=== PATIENT | male | born 1950 | race Caucasian/White ===

== ENCOUNTER 2016-12-02 10:34 | Emergency (ER) | payer MEDICARE ==
[~2016-12-02 10:34] MED LIST: ASCO250T3 PO; ASPI81TA2 PO; CETI10TA30 PO; FERR-26 PO; FURO-68 PO; LISI-338 PO; LISI2.5T PO; METO50TA10 PO; OXYC-323 PO; OXYC10TA PO; PANT40TA5 PO; POTA10TA17 PO; PRAV10TA2 PO; PRED20TA PO; RIVA10TA PO
[2016-12-02] MEDS: VANCOMYCIN 1.5 GM in IV NORMAL SALINE 500ML 500 ML IV ONE (11:30)
[2016-12-02] MEDS: VANCOMYCIN PER PHARMACY MC ONE (11:45)
[2016-12-02] MEDS ORDERED: VANCOMYCIN 1 GM VIAL. ONE (11:52)
[2016-12-02] MEDS ORDERED: IV NORMAL SALINE 500ML 500 ML ONE (11:52)
[2016-12-02 12:01] LABS: BASO % 0 % (0-3); EOS # 0.1 x10^3/uL (0.0-0.7); EOS % 1 % (0-3); HEMATOCRIT 32.1 % (39.0-53.0); HEMOGLOBIN 10.7 g/dL (13.0-17.5); LYMPH # 1.3 x10^3/uL (1.0-4.8); LYMPH % 12 % (24-48); MEAN CORPUSCULAR HEMOGLOBIN 30 pg (25-35); MEAN CORPUSCULAR HGB CONC 33 g/dL (31-37); MEAN CORPUSCULAR VOLUME 88 fL (79-100); MONO # 0.9 x10^3/uL (0.0-1.1); MONO % 8 % (0-9); NEUT # 8.6 x10^3uL (1.8-7.7); NEUT % 79 % (31-73); PLATELET COUNT 179 x10^3/uL (140-400); RED BLOOD COUNT 3.63 x10^6/uL (4.30-5.70); RED CELL DISTRIBUTION WIDTH 17.2 % (11.5-14.5)
[2016-12-02 12:16] LABS: C REACTIVE PROTEIN 29.8 mg/L (0-3.3); CALCIUM 8.3 mg/dL (8.5-10.1); CREATININE 1.8 mg/dL (0.7-1.3); GFR 37.7; POTASSIUM 4.2 mmol/L (3.5-5.1)
[2016-12-02] MEDS: MORPHINE SULFATE 4 MG/ML DISP.SYRIN. IV/SQ PRN (12:31)
--- NOTE | 2016-12-02 12:34 | RAD ---
Right great toe, 3 views, 12/02/2016: History: Pain and swelling There is patchy bony demineralization. No fracture or destructive bony lesion is seen. There is mild spurring at the MTP joint. There is mild soft tissue swelling. IMPRESSION: No acute bony abnormality is detected.
--- NOTE | 2016-12-02 12:38 | PHYS DOC ---
General Chief Complaint: TOE PROBLEM Stated Complaint: LEFT TOE INFECTION Time Seen by MD: 10:45 Source: patient, old records Exam Limitations: no limitations Problems: History of Present Illness Initial Comments Pt is 66/M to ED c/o left foot pain. Pt recently inpatient at [facility] with pneumonia/sepsis, was d/c home one week ago. Pt states that while inpatient he developed a "blister" at his distal L hallux and redness/irritation at medial arch. He thinks the ABELARDO hose worn in hospital rubbed and irritated him causing an infection. Since discharge the blister burst now a scabbed lesion. Today pt with redness at hallux and extending up medial aspect to about mid foot. Appears to be a large blister overlying medial arch, redness and tenderness. Pt is able to walk with discomfort. Pt also states he's had few episodes of N/V past two days, no focal pain complaints. Onset: last week Severity: moderate Pain/Injury Location: left foot, left 1st toe Method of Injury: unknown (possibly ABELARDO irritation) Modifying Factors: worse with jarring, worse with movement, improves with rest Allergies: Coded Allergies: ketorolac (Verified Allergy, Intermediate, 11/12/16) pseudoephedrine (Verified Allergy, Intermediate, 11/12/16) rofecoxib (Verified Allergy, Intermediate, 11/12/16) Past Medical History Medical History: other (atrial fibrillation, OA, CAD, CHF, COPD, CVA, gallstones, GI Bleed, HLP, AAA 5.3cm, BPH) Surgical History: coronary bypass surgery, other (hip replacement, hernia,) Social History Smoker: quit greater than 1 year Alcohol: sober Drugs: marijuana Review of Systems Constitutional: denies chills, denies fever Respiratory: denies cough, denies shortness of breath Cardiovascular: denies chest pain, denies palpitations, denies syncope Gastrointestinal: denies abdominal pain, denies nausea, denies vomiting Musculoskeletal: see HPIdenies joint pain Skin: see HPI Psychiatric/Neurological: denies headache, denies numbness, denies paresthesia , denies weakness Physical Exam General Appearance: no apparent distress HEENT: normal ENT inspection Neck: non-tender, supple Cardiovascular/Respiratory: normal peripheral pulses, no respiratory distress Back: no CVA tenderness, no vertebral tenderness Feet: left foot other (hallux with scabbed 0.5cm at distal phalanx, erythema at hallux and extending up 1st ray to midfoot mild induration appears to be large overlying blister with scattered purulence within, mildly tender/warm no subq mass no bony TTP ligs/tendons intact) Neurologic/Tendon: normal sensation, normal motor functions, normal tendon functions, responds to pain, no evidence tendon injury Psychiatric: alert, oriented x 3 Skin: warm/dry Orders, Labs, Meds PATIENT: ULI VILLASEÑOR ACCOUNT: [id number] : 1950 LOCATION: ER AGE: 66 SEX: M EXAM STATUS: PRE ER ORD. PHYSICIAN: SILVERIO ZAVALA DO REASON: pain/swell poss osteo PROCEDURE: TOES LEFT Right great toe, 3 views, 12/02/2016: History: Pain and swelling There is patchy bony demineralization. No fracture or destructive bony lesion is seen. There is mild spurring at the MTP joint. There is mild soft tissue swelling. IMPRESSION: No acute bony abnormality is detected. DICTATED AND SIGNED BY: LUIS ENRIQUE SANDOVAL MD DATE: 12/02/16 1230 CC: PCP,NO; SILVERIO ZAVALA DO ~ CRP elevated otherwise labs reassuring. VSS imaging with no evidence osteo. I discussed treatment options with pt, could make case for inpatient vs trial of outpatient conservative care. Pt would like to try outpt treatment, agrees to return if sx worsen. Departure Time of Disposition: 12:47 Disposition: HOME, SELF-CARE Diagnosis: L foot cellulitis/ulceration Condition: STABLE Patient Instructions: Cellulitis, [id number] Additional Instructions: Elevate right foot as tolerated. Wound care consultation, diagnosis: left hallux ulcer Rx: doxycycline, norco 5mg #20 OTC stool softeners and increased fluid intake while taking norco. Follow up with your doctor Friday for recheck. Return to ED with new or changing symptoms. SILVERIO ZAVALA DO Dec 02, 2016 12:38
[2016-12-02] MEDS ORDERED: DOXY100T PO (12:51)
[2016-12-02] MEDS ORDERED: MUPI15CR TP (12:51)
[2016-12-02] MEDS ORDERED: HYDR-971 PO (12:51)
[2016-12-02 13:06] LABS: SEDIMENTATION RATE 43 (0-15)
[2016-12-02 14:23] VITALS: BP 151/85
== END 2016-12-02 14:30 | disposition home or self-care (01) ==
LOC: ER 10:34
DX: L97.529 Non-pressure chronic ulcer of other part of left foot with unspecified severity (principal); S90.822A Blister (nonthermal), left foot, initial encounter; R11.2 Nausea with vomiting, unspecified; Z88.8 Allergy status to other drugs, medicaments and biological substances; Z95.1 Presence of aortocoronary bypass graft; X58.XXXA Exposure to other specified factors, initial encounter; Y93.89 Activity, other specified; Y99.8 Other external cause status; Y92.89 Other specified places as the place of occurrence of the external cause
CPT/HCPCS: 36415; 73660; 80048; 85027; 85651; 86140; 87040; 87070; 96365; 96366; 96375; 99285; J2270; J3370; J7040

== ENCOUNTER 2016-12-06 15:17 | Emergency (ER) | payer MEDICARE ==
[~2016-12-06] VITALS: Ht 175.3 cm; Wt 60.3 kg
[~2016-12-06 15:17] MED LIST changes: +DOXY100T PO; +HYDR-971 PO; +MUPI15CR TP
[2016-12-06 15:29] VITALS: BP 115/72
[2016-12-06] MEDS ORDERED: HYDR-971 PO (16:15)
--- NOTE | 2016-12-06 16:15 | PHYS DOC ---
Past History Past Medical History: A-Fib, Arthritis, CAD, CHF, COPD, CVA, Gallstones, GI Bleed, High Cholesterol, Other Past Surgical History: Coronary Bypass Surgery, Hip Replacement, Other Alcohol Use: Sober Drug Use: Marijuana Adult General Chief Complaint Chief Complaint: FOOT INJURY PAIN HPI HPI 66 years old male patient states he had left foot wound for 1 week and was seen in this hospital and treated with antibiotic but his pain is not getting better. Patient states he is out of [place] now. Patient denies fever and chills, focal neuro deficit. Review of Systems Review of Systems Constitutional: Denies fever or chills [] Eyes: Denies change in visual acuity, redness, or eye pain [] HENT: Denies nasal congestion or sore throat [] Respiratory: Denies cough or shortness of breath [] Musculoskeletal: Denies back pain or joint pain [] Integument: See HPI[] Neurologic: Denies headache, focal weakness or sensory changes [] Endocrine: Denies polyuria or polydipsia [] Allergies Allergies Allergies Coded Allergies Type Severity Reaction Last Updated Verified ketorolac Allergy Intermediate 11/12/16 Yes pseudoephedrine Allergy Intermediate 11/12/16 Yes rofecoxib Allergy Intermediate 11/12/16 Yes Physical Exam Physical Exam Constitutional: Mild distress, non-toxic appearance. [] HENT: Normocephalic, atraumatic, bilateral external ears normal, oropharynx moist, no oral exudates, nose normal. [] Eyes: PERRLA, EOMI, conjunctiva normal, no discharge. [] Neck: Normal range of motion, no tenderness, supple, no stridor. [] Cardiovascular:Heart rate regular rhythm, no murmur [] Lungs & Thorax: Bilateral breath sounds clear to auscultation [] Skin: Warm, dry, no erythema, no rash.left foot withdries wound without sign of active infection [] Back: No tenderness, no CVA tenderness. [] Extremities: No tenderness, no cyanosis, no clubbing, ROM intact, no edema. [] Neurologic: Alert and oriented X 3, normal motor function, normal sensory function, no focal deficits noted. [] Psychologic: Affect normal, judgement normal, mood normal. [] Current Patient Data Vital Signs Vital Signs Date Time Temp Pulse Resp B/P Pulse Ox O2 Delivery O2 Flow Rate FiO2 3/24/17 15:29 98.2 84 15 98 Nasal Cannula 2 EKG EKG [] Radiology/Procedures Radiology/Procedures [] Course & Med Decision Making Course & Med Decision Making Patient asking for more pain medication until seen by his doctor on Friday. Dragon Disclaimer Dragon Disclaimer This chart was dictated in whole or in part using Voice Recognition software in a busy, high-work load, and often noisy Emergency Department environment. It may contain unintended and wholly unrecognized errors or omissions. Departure Departure: Impression: Primary Impression: Visit for wound check Additional Impression: Foot pain Disposition: HOME, SELF-CARE (At 1613) Condition: STABLE Referrals: PCP,NO (PCP) Patient Instructions: Pain of Unknown Etiology (Pain without a known Cause) Scripts Hydrocodone Bit/Acetaminophen ([place] 5-325 Tablet)1 Each Tablet1 Tab PO TID #10 TAB Prov:RAJNI ROA MD 12/06/16 Problem Qualifiers RAJNI ROA MD Dec 06, 2016 16:15
== END 2016-12-06 16:24 | disposition home or self-care (01) ==
LOC: ER 15:17
DX: Z48.01 Encounter for change or removal of surgical wound dressing (principal); M79.672 Pain in left foot; I48.91 Unspecified atrial fibrillation; I50.9 Heart failure, unspecified; I25.10 Atherosclerotic heart disease of native coronary artery without angina pectoris; E78.00 Pure hypercholesterolemia, unspecified; J44.9 Chronic obstructive pulmonary disease, unspecified; M19.90 Unspecified osteoarthritis, unspecified site; F12.10 Cannabis abuse, uncomplicated; Z86.73 Personal history of transient ischemic attack (TIA), and cerebral infarction without residual deficits; Z95.1 Presence of aortocoronary bypass graft; Z88.8 Allergy status to other drugs, medicaments and biological substances
CPT/HCPCS: 99283; 99284

== ENCOUNTER 2016-12-10 19:43 | Emergency (ER) | payer MEDICARE ==
[~2016-12-10] VITALS: Ht 175.3 cm; Wt 60.3 kg
[2016-12-10 21:20] VITALS: BP 150/68
--- NOTE | 2016-12-10 22:19 | PHYS DOC ---
General Chief Complaint: SHOULDER INJURY Stated Complaint: RIGHT SHOULD PAIN Time Seen by MD: 22:00 Source: patient Problems: History of Present Illness Initial Comments Patient here for right shoulder, back, and hip pain. Patient states he has problems with chronic pain and arthritis in these sites. There is no new history of injury or trauma in any of these sites. He says he is normally on 20 mg of Percocet every 4-6 hours for this, but ran out of these medicines several days ago. He says he does has follow-up with a new physician, Dr. Beebe, in 4- 5 days, boardlike something to get through that time. He says is really unable to move his right arm because of pain in the shoulder, and also unable to sleep because of it as well. He has no new history of injury or trauma to any of these areas. As noted, he states he has chronic arthritis the right shoulder. He says there've been talking to about replace the right shoulder, but can't do so until he replaces right hip. Apparently has a previous fracture which is poorly healed of the right hip exposed to see this Dr. Beebe orthopedics in several days' time to get this evaluated for repair prior to be up to repair the shoulder. He also has chronic back pain issues. Chills today. There is no runny nose or sore throat. He has no chest pain. He has chronic shortness of breath with known COPD and is on home oxygen. This is not acutely changed from different anyway. He has no nausea vomiting or abdominal pain. There is no change in bowel or bladder habits. He denies any other acute focal extremity or neurologic complaints except for the right shoulder and right hip pain as noted. He says he recently had a stroke several weeks ago, and since that time he has problems with coordination on the left hand. He suddenly tried to feed himself on the left hand, this is his mouth and has to throw the food up in the air to try to catch it. He says he has to do this because he can't move his right arm to help. This is not acutely changed or different but is present since the stroke 3 weeks ago. Patient taking [id number] medicines for this at home without help. He is really unable to get up without assistance from family members, and is pretty much in a wheelchair. There is no other increasing or decreasing factors noted. Patient's past medical history is remarkable for COPD as well as chronic arthritis and multiple extremity fractures and injuries by his report. He's had coronary bypass surgery 5 in [place]. He also had several episodes of anaphylaxis at the [facility] , and is not willing to follow up there anymore, as they have put off addressing his arthritis and orthopedic complaints for over 2 years they finally was able to make an appointment outside of the [place]. He is a nonsmoker and nonuser of ethanol. Allergies: Coded Allergies: ketorolac (Verified Allergy, Intermediate, 11/12/16) pseudoephedrine (Verified Allergy, Intermediate, 11/12/16) rofecoxib (Verified Allergy, Intermediate, 11/12/16) Past Medical History Medical History: arthritis, COPD, other Surgical History: coronary bypass surgery Physical Exam General Appearance: WD/WN, no apparent distress Ear, Nose, Throat: normal ENT inspection, normal pharynx Neck: full range of motion, supple, normal inspection Respiratory: lungs clear, normal breath sounds, no respiratory distress Cardiovascular: regular rate, rhythm, no edema Extremities: other Neurologic/Psychiatric: no motor/sensory deficits, alert, normal mood/affect, oriented x 3 Skin: normal color Lymphatic: no adenopathy Comments Generally this is an elderly chronically ill-appearing white male in no acute distress. Vitals are as noted. Pertinent findings on physical exam shows the neck to be fully nontender. Chest is minimally decreased breath sounds but fair air flow and no wheezes rales or rhonchi. There is no tachypnea and he has no signs of respiratory distress. Cardiac vascular exams unremarkable x-ray show no rashes, cyanosis or, or edema. The back shows some mild to moderate tenderness over the bilateral sacroiliac joints which she states is chronic pain. He holds the right arm limply at the side, intravenous right shoulder pain. The shoulder shows no gross bony deformity and no signs of injury trauma or fracture. He really won't move the arm at the shoulder because of pain, but does have good range of motion of the elbow and has intact radian, medial, and ulnar nerve function of the right hand and wrist. On the left, he has good 5 over 5 strength, and diminished 4 over 5 strength in both lower extremity. As best I can tell by his history, he is neurologically at baseline. He is awake alert oriented and cooperative. Remainder of physical exam is clinically unremarkable. Orders, Labs, Meds Old charts note multiple prior ER visits for a variety of issues including wound check, foot cellulitis, pressure sore, and fall with low back pain and COPD. This is 50 ER visit this year alone. He was last admitted hospital in October of this year for COPD and CHF. I discussed with the patient this time, I don't think there is a need for additional x-ray evaluation. As far as I can tell, he is essentially stable, symptom with complaints of chronic pain and known arthritis. I did explain to him initially this feeling on her practiced referral chronic narcotic pain medication, but he does seem to be fairly reliable and does have a follow-up appointment with a known physician in 4 or 5 days. I did discuss with them that I'm willing to give him a limited supply of Percocet, which he usually takes at home 20 mg every 4 hours, in an effort to get him through the next several days. I have written prescription for 30 tablets of the 10 mg strength. I've also given 20 mg here prior to discharge from the ED. He is going home with family members who can drive. He does voice understanding that he will may not be able to receive further narcotic pain medicine here in the ED, he will need to follow up with his new care provider. Patient voices understanding and is agreeable to this limitation. He looks well, no acute discomfort or stress, okay for discharge home at this time. ALLISON HULL MD Dec 10, 2016 22:18
[2016-12-10] MEDS: OXYCODONE/APAP 10/325 TABLET. PO ONE (22:45)
== END 2016-12-10 22:40 | disposition home or self-care (01) ==
LOC: ER 19:53
DX: G89.29 Other chronic pain (principal); M19.011 Primary osteoarthritis, right shoulder; M16.11 Unilateral primary osteoarthritis, right hip; M47.9 Spondylosis, unspecified; J44.9 Chronic obstructive pulmonary disease, unspecified; Z86.73 Personal history of transient ischemic attack (TIA), and cerebral infarction without residual deficits; Z99.81 Dependence on supplemental oxygen; Z95.1 Presence of aortocoronary bypass graft; Z88.8 Allergy status to other drugs, medicaments and biological substances
CPT/HCPCS: 99283

== ENCOUNTER 2016-12-26 14:22 | Emergency (ER) | payer MEDICARE ==
[~2016-12-26] VITALS: Ht 327.7 cm; Wt 60.3 kg
[~2016-12-26 14:22] MED LIST changes: +ALBU8.5H3 INH; +FURO40TA4 PO; +TIOT18CA IH
[2016-12-26 14:32] VITALS: BP 143/72
--- NOTE | 2016-12-26 15:29 | RAD ---
Right femur, 2 views, 12/26/2016: History: Pain, injury A bipolar right hip prosthesis is in place. It appears to be unchanged in position since a study from 10/13/2016. There are small dystrophic calcifications or old fracture fragments along the superior aspect of the right greater trochanter. No acute fracture is identified. There are moderate degenerative changes at the knee joint. Moderate arterial calcifications are present in the thigh. Surgical clips are present medially at the knee. IMPRESSION: 1. Chronic findings as described above. 2. No acute bony abnormality is detected.
[2016-12-26] MEDS ORDERED: OXYC10TA PO (15:41)
--- NOTE | 2016-12-26 15:49 | ED.ADGEN ---
Past History Past Medical History: Arthritis, CHF, COPD, Other Past Surgical History: Other Alcohol Use: None Drug Use: None Adult General HPI HPI Patient is a 66-year-old male presents emergency department complaining of right thigh pain. Pain started 5 days ago after he dropped a heavy object onto it while getting off of overhead shelf. Since that time patient has had no evaluation of injury. However, he did travel by car to [place] in the interim. He also reports that he is down to only 2 of his oxycodone and is worried about pain to the rest of the day and night. Review of Systems Review of Systems Constitutional: Denies fever or chills [] Eyes: Denies change in visual acuity, redness, or eye pain [] HENT: Denies nasal congestion or sore throat [] Respiratory: Denies cough or shortness of breath [] Cardiovascular: No additional information not addressed in HPI [] GI: Denies abdominal pain, nausea, vomiting, bloody stools or diarrhea [] : Denies dysuria or hematuria [] Musculoskeletal: Denies back pain or joint pain [] Integument: Denies rash or skin lesions [] Neurologic: Denies headache, focal weakness or sensory changes [] Endocrine: Denies polyuria or polydipsia [] Allergies Allergies Allergies Coded Allergies Type Severity Reaction Last Updated Verified ketorolac Allergy Intermediate 11/12/16 Yes pseudoephedrine Allergy Intermediate 11/12/16 Yes rofecoxib Allergy Intermediate 11/12/16 Yes Fish Containing Products Allergy Unknown 12/18/16 Yes I S O L A T I O N *CONTACT* Allergy Unknown 12/17/16 Yes hydrocodone Allergy Unknown 12/18/16 Yes peanut Allergy Unknown 12/18/16 Yes tramadol Allergy Unknown 12/18/16 Yes Physical Exam Physical Exam Constitutional: Well developed, well nourished, no acute distress, non-toxic appearance. [] HENT: Normocephalic, atraumatic, bilateral external ears normal, oropharynx moist, no oral exudates, nose normal. [] Eyes: PERRLA, EOMI, conjunctiva normal, no discharge. [] Neck: Normal range of motion, no tenderness, supple, no stridor. [] Cardiovascular:Heart rate regular rhythm, no murmur [] Lungs & Thorax: Bilateral breath sounds clear to auscultation [] Abdomen: Bowel sounds normal, soft, no tenderness, no masses, no pulsatile masses. [] Skin: Warm, dry, no erythema, no rash. [] Back: No tenderness, no CVA tenderness. [] Extremities: Right thigh is tender to palpation with all the compartments being soft. [] Neurologic: Alert and oriented X 3, normal motor function, normal sensory function, no focal deficits noted. [] Psychologic: Affect normal, judgement normal, mood normal. [] Current Patient Data Vital Signs Vital Signs Date Time Temp Pulse Resp B/P Pulse Ox O2 Delivery O2 Flow Rate FiO2 12/26/16 14:32 97.9 74 20 99 Nasal Cannula 2 EKG EKG [] Radiology/Procedures Radiology/Procedures Right femur, 2 views, 12/26/2016: History: Pain, injury A bipolar right hip prosthesis is in place. It appears to be unchanged in position since a study from 10/13/2016. There are small dystrophic calcifications or old fracture fragments along the superior aspect of the right greater trochanter. No acute fracture is identified. There are moderate degenerative changes at the knee joint. Moderate arterial calcifications are present in the thigh. Surgical clips are present medially at the knee. IMPRESSION: 1. Chronic findings as described above. 2. No acute bony abnormality is detected. DICTATED AND SIGNED BY: LUIS ENRIQUE SANDOVAL MD DATE: 12/26/16 1524 CC: KRISTIAN MOORE MD; GREGORIO DE SANTIAGO MD ~ [] Course & Med Decision Making Course & Med Decision Making Pertinent Labs and Imaging studies reviewed. (See chart for details) He is going to attempt to see his primary care physician in the morning. However , status unsuccessfully's concern he will be admitted to the week and with only 2 of his oxycodone. The patient spent a long time chronic user of large opiate doses and I agree that he will likely go to withdraw or have further complications. Consequently, I have given a prescription for oxycodone that should get him through the weekend if necessary. [] Final Impression Final Impression Right thigh contusion [] Problems: Dragon Disclaimer Dragon Disclaimer This electronic medical record was generated, in whole or in part, using a voice recognition dictation system. KRISTIAN MOORE MD Dec 26, 2016 15:49
== END 2016-12-26 15:55 | disposition home or self-care (01) ==
LOC: ER 14:22
DX: S70.11XA Contusion of right thigh, initial encounter (principal); J44.9 Chronic obstructive pulmonary disease, unspecified; M19.90 Unspecified osteoarthritis, unspecified site; I50.9 Heart failure, unspecified; Z88.8 Allergy status to other drugs, medicaments and biological substances; Z91.041 Radiographic dye allergy status; Z88.5 Allergy status to narcotic agent; Z91.010 Allergy to peanuts; Z91.013 Allergy to seafood; W20.8XXA Other cause of strike by thrown, projected or falling object, initial encounter; Y93.89 Activity, other specified; Y99.8 Other external cause status; Y92.89 Other specified places as the place of occurrence of the external cause
CPT/HCPCS: 73552; 99284

== ENCOUNTER 2017-04-03 20:12 | Emergency (ER) | payer MEDICARE ==
[~2017-04-03] VITALS: Ht 175.3 cm; Wt 66.3 kg
[~2017-04-03 20:12] MED LIST changes: -ALBU8.5H3 INH; +ALBU8.5H8 INH; +ASPI-630 PO; -ASPI81TA2 PO
[2017-04-03] MEDS ORDERED: 0.9 % SODIUM CHLORIDE 10 ML DISP.SYRIN. IV PRN (20:45)
[2017-04-03 21:42] LABS: BASO # 0.1 x10^3/uL (0.0-0.2); BASO % 1 % (0-3); EOS # 0.1 x10^3/uL (0.0-0.7); EOS % 1 % (0-3); HEMATOCRIT 30.3 % (39.0-53.0); HEMOGLOBIN 9.9 g/dL (13.0-17.5); LYMPH # 0.8 x10^3/uL (1.0-4.8); LYMPH % 7 % (24-48); MEAN CORPUSCULAR HEMOGLOBIN 29 pg (25-35); MEAN CORPUSCULAR HGB CONC 33 g/dL (31-37); MEAN CORPUSCULAR VOLUME 90 fL (79-100); MONO # 1.3 x10^3/uL (0.0-1.1); MONO % 11 % (0-9); NEUT # 10.1 x10^3uL (1.8-7.7); NEUT % 81 % (31-73); PLATELET COUNT 216 x10^3/uL (140-400); RED BLOOD COUNT 3.39 x10^6/uL (4.30-5.70); RED CELL DISTRIBUTION WIDTH 16.7 % (11.5-14.5); WHITE BLOOD COUNT 12.5 x10^3/uL (4.0-11.0)
--- NOTE | 2017-04-03 21:43 | PHYS DOC ---
Past History Past Medical History: Arthritis, CHF, COPD, Hypertension, Renal Disease, Renal Failure, Other Additional Past Medical Histor: Aortic aneurysm (5.4 cm) Past Surgical History: Coronary Bypass Surgery, Hip Replacement, Other Additional Past Surgical Histo: left iliac stent Smoking: Cigarettes Additional Smoking Information: occasional "when I can sneak one" Alcohol Use: None Drug Use: Marijuana Social History Narrative: Lives with daughter Adult General Chief Complaint Chief Complaint: LOWER EXTREMITY SWELLING HPI HPI Patient is a 66 year old male who presents with swelling of his lower legs. He states he has problems with CHF but recently his Lasix was stopped. He notes increased swelling of his lower legs more dramatically last 24 hours. He states that they started "weeping". Coulter maybe slightly more short of air yesterday. Did take an old Lasix and filled "6 urinals of urine" at home today. He is on oxygen maintains at 4 L at home and has a hospital bed where he sleeps with his head up. He's had no change in his ability to lay down. He's had no chest pain. No recent travel. He contacted his PCP today (Dr Soto) but didn't have a ride to get in to the office. Patient is on Eliquis. Review of Systems Review of Systems Constitutional: Denies fever or chills Eyes: Denies change in visual acuity, redness, or eye pain HENT: Denies nasal congestion or sore throat Respiratory: Denies cough some mile shortness of breath Cardiovascular: No chest pain GI: Denies abdominal pain, nausea, vomiting, bloody stools or diarrhea : Denies dysuria or hematuria Musculoskeletal: Denies back pain or joint pain . Swelling of both feet and ankles Integument: Denies rash or skin lesions Neurologic: Denies headache, focal weakness or sensory changes Current Medications Current Medications Current Medications Medications (Trade) Dose Ordered Sig/Kayla Start Time Stop Time Status Last Admin Dose Admin Sodium Chloride (Normal Saline Flush) 10 ml QSHIFT PRN 04/03/17 20:45 Allergies Allergies Allergies Coded Allergies Type Severity Reaction Last Updated Verified ketorolac Allergy Intermediate 11/12/16 Yes pseudoephedrine Allergy Intermediate 11/12/16 Yes rofecoxib Allergy Intermediate 11/12/16 Yes Fish Containing Products Allergy Unknown 12/18/16 Yes I S O L A T I O N *CONTACT* Allergy Unknown 12/17/16 Yes hydrocodone Allergy Unknown 12/18/16 Yes peanut Allergy Unknown 12/18/16 Yes tramadol Allergy Unknown 12/18/16 Yes Physical Exam Physical Exam Constitutional: Well developed, well nourished, no acute distress, non-toxic appearance. HENT: Normocephalic, atraumatic, bilateral external ears normal, oropharynx moist, no oral exudates, nose normal. Eyes: PERRLA, EOMI, conjunctiva normal, no discharge. Neck: Normal range of motion, no tenderness, supple, no stridor. Cardiovascular:Heart rate regular rhythm, faint murmur Lungs & Thorax: coarse breath sounds at the bases. No wheezing; good air flow. Abdomen: Bowel sounds normal, soft, no tenderness, no masses, no pulsatile masses. Skin: Warm, dry, no erythema, no rash. Back: No tenderness, no CVA tenderness. Extremities: No tenderness, no cyanosis, no clubbing, ROM intact. 2+ edema bilateral lower legs. Chronic venous stasis changes noted. No calf pain tenderness. Neg Homans Neurologic: Alert and oriented X 3, normal motor function, normal sensory function, no focal deficits noted. Psychologic: Affect normal, judgement normal, mood normal. Current Patient Data Vital Signs BP 138/84 Vital Signs Date Time Temp Pulse Resp B/P (MAP) Pulse Ox O2 Delivery O2 Flow Rate FiO2 04/03/17 20:12 98.4 78 18 100 Nasal Cannula 3.0 Lab Results Lab results reviewed Laboratory Tests Test 04/03/17 21:06 04/03/17 21:25 Urine Collection Type Unknown Urine Color Yellow Urine Clarity Clear Urine pH 5.5 Urine Specific [place] 1.010 Urine Protein Neg Urine Glucose (UA) Neg mg/dL Urine Ketones (Stick) Neg mg/dL Urine Blood Neg Urine Nitrite Neg Urine Bilirubin Neg Urine Urobilinogen Dipstick 0.2 mg/dL Urine Leukocyte Esterase Neg Urine RBC Occ /HPF Urine WBC Occ /HPF Urine Squamous Epithelial Cells Few /LPF Urine Bacteria 0 /HPF Urine Hyaline Casts Mod /HPF Urine Mucus Mod /LPF White Blood Count 12.5 x10^3/uL Red Blood Count 3.39 x10^6/uL Hemoglobin 9.9 g/dL Hematocrit 30.3 % Mean Corpuscular Volume 90 fL Mean Corpuscular Hemoglobin 29 pg Mean Corpuscular Hemoglobin Concent 33 g/dL Red Cell Distribution Width 16.7 % Platelet Count 216 x10^3/uL Neutrophils (%) (Auto) 81 % Lymphocytes (%) (Auto) 7 % Monocytes (%) (Auto) 11 % Eosinophils (%) (Auto) 1 % Basophils (%) (Auto) 1 % Neutrophils # (Auto) 10.1 x10^3uL Lymphocytes # (Auto) 0.8 x10^3/uL Monocytes # (Auto) 1.3 x10^3/uL Eosinophils # (Auto) 0.1 x10^3/uL Basophils # (Auto) 0.1 x10^3/uL Prothrombin Time 11.0 SEC Prothromb Time International Ratio 1.1 Activated Partial Thromboplast Time 27 SEC Sodium Level 142 mmol/L Potassium Level 3.5 mmol/L Chloride Level 103 mmol/L Carbon Dioxide Level 34 mmol/L Anion Gap 5 Blood Urea Nitrogen 30 mg/dL Creatinine 1.3 mg/dL Estimated GFR (Cockcroft-Gault) 54.9 BUN/Creatinine Ratio 23 Glucose Level 88 mg/dL Calcium Level 8.6 mg/dL Magnesium Level 1.8 mg/dL Total Bilirubin 0.4 mg/dL Direct Bilirubin 0.1 mg/dL Aspartate Amino Transf (AST/SGOT) 21 U/L Alanine Aminotransferase (ALT/SGPT) 23 U/L Alkaline Phosphatase 91 U/L Creatine Kinase 183 U/L Creatine Kinase MB (Mass) 6.5 ng/mL Creatine Kinase MB Relative Index 3.6 % Troponin I Quantitative 0.019 ng/mL [id number]-[id number]-B-Type Natriuretic Peptide 3738 pg/mL Total Protein 7.3 g/dL Albumin 3.8 g/dL Albumin/Globulin Ratio 1.1 Current Medications Medications (Trade) Dose Ordered Sig/Kayla Route PRN Reason Start Time Stop Time Status Last Admin Dose Admin Sodium Chloride (Normal Saline Flush) 10 ml QSHIFT PRN IV AFTER MEDS AND BLOOD DRAWS 04/03/17 20:45 04/03/17 21:25 EKG EKG EKG interpreted by myself. Heart rate of 74. It is sinus rhythm. He has intraventricular conduction delay with left axis deviation. Nonspecific ST changes. No STEMI Radiology/Procedures Radiology/Procedures Laboratory Tests Test 04/03/17 21:06 04/03/17 21:25 Urine Collection Type Unknown Urine Color Yellow Urine Clarity Clear Urine pH 5.5 Urine Specific [place] 1.010 Urine Protein Neg Urine Glucose (UA) Neg mg/dL Urine Ketones (Stick) Neg mg/dL Urine Blood Neg Urine Nitrite Neg Urine Bilirubin Neg Urine Urobilinogen Dipstick 0.2 mg/dL Urine Leukocyte Esterase Neg Urine RBC Occ /HPF Urine WBC Occ /HPF Urine Squamous Epithelial Cells Few /LPF Urine Bacteria 0 /HPF Urine Hyaline Casts Mod /HPF Urine Mucus Mod /LPF White Blood Count 12.5 x10^3/uL Red Blood Count 3.39 x10^6/uL Hemoglobin 9.9 g/dL Hematocrit 30.3 % Mean Corpuscular Volume 90 fL Mean Corpuscular Hemoglobin 29 pg Mean Corpuscular Hemoglobin Concent 33 g/dL Red Cell Distribution Width 16.7 % Platelet Count 216 x10^3/uL Neutrophils (%) (Auto) 81 % Lymphocytes (%) (Auto) 7 % Monocytes (%) (Auto) 11 % Eosinophils (%) (Auto) 1 % Basophils (%) (Auto) 1 % Neutrophils # (Auto) 10.1 x10^3uL Lymphocytes # (Auto) 0.8 x10^3/uL Monocytes # (Auto) 1.3 x10^3/uL Eosinophils # (Auto) 0.1 x10^3/uL Basophils # (Auto) 0.1 x10^3/uL Prothrombin Time 11.0 SEC Prothromb Time International Ratio 1.1 Activated Partial Thromboplast Time 27 SEC Sodium Level 142 mmol/L Potassium Level 3.5 mmol/L Chloride Level 103 mmol/L Carbon Dioxide Level 34 mmol/L Anion Gap 5 Blood Urea Nitrogen 30 mg/dL Creatinine 1.3 mg/dL Estimated GFR (Cockcroft-Gault) 54.9 BUN/Creatinine Ratio 23 Glucose Level 88 mg/dL Calcium Level 8.6 mg/dL Magnesium Level 1.8 mg/dL Total Bilirubin 0.4 mg/dL Direct Bilirubin 0.1 mg/dL Aspartate Amino Transf (AST/SGOT) 21 U/L Alanine Aminotransferase (ALT/SGPT) 23 U/L Alkaline Phosphatase 91 U/L Creatine Kinase 183 U/L Creatine Kinase MB (Mass) 6.5 ng/mL Creatine Kinase MB Relative Index 3.6 % Troponin I Quantitative 0.019 ng/mL CZ-Ekl-[id number]-Type Natriuretic Peptide 3738 pg/mL Total Protein 7.3 g/dL Albumin 3.8 g/dL Albumin/Globulin Ratio 1.1 Current Medications Medications (Trade) Dose Ordered Sig/Kayla Route PRN Reason Start Time Stop Time Status Last Admin Dose Admin Sodium Chloride (Normal Saline Flush) 10 ml QSHIFT PRN IV AFTER MEDS AND BLOOD DRAWS 04/03/17 20:45 04/03/17 21:25 CXR; my interpretation. Enlarged cardiac silhouette; increased pulm vascularity. Course & Med Decision Making Course & Med Decision Making Pertinent Labs and Imaging studies reviewed. (See chart for details) Patient presents in no distress presently. He has diuresed at home. Still has pedal edema. He DECLINES ADMISSION. He has NO evidence of acute pulmonary compromise at this time. Lasix 40 po once tonight and he has an appt in the am he states. If he develops chest pain or increasing SOA he needs to be re- assessed. He is RESTING COMFORTABLY IN NO RESPIRATORY DISTRESS THE ENTIRE TIME IN THE ED. Dragon Disclaimer Dragon Disclaimer This chart was dictated in whole or in part using Voice Recognition software in a busy, high-work load, and often noisy Emergency Department environment. It may contain unintended and wholly unrecognized errors or omissions. Departure Departure: Impression: Primary Impression: Pedal edema Additional Impression: CHF exacerbation Disposition: 01 HOME, SELF-CARE Condition: GOOD Referrals: GREGORIO SOTO MD (PCP) Patient Instructions: Peripheral Edema Additional Instructions: you need to be seen by your PCP in the am to have your medications reviewed Problem Qualifiers Additional Impression: CHF exacerbation Congestive heart failure type: unspecified congestive heart failure type Qualified Codes: I50.9 - Heart failure, unspecified CHERI SRINIVASAN MD Apr 03, 2017 21:43
[2017-04-03 21:53] LABS: CLARITY,URINE CLEAR; COLOR,URINE YELLOW; GLUCOSE,URINE NEG (NEG)
[2017-04-03 21:54] LABS: BACTERIA,URINE 0 /HPF (0-FEW); BILIRUBIN,URINE NEG (NEG); NITRITE,URINE NEG (NEG); RBC,URINE OCC /HPF (0-2); SQUAMOUS EPITHELIAL CELL,UR FEW /LPF; UROBILINOGEN,URINE 0.2 mg/dL (0.2 mg/dL); WBC,URINE OCC /HPF (0-4)
[2017-04-03 21:55] LABS: HYALINE CASTS, URINE MOD /HPF
[2017-04-03 21:59] VITALS: BP 162/51
[2017-04-03 22:02] LABS: ALBUMIN 3.8 g/dL (3.4-5.0); ALBUMIN/GLOBULIN RATIO 1.1 (1.0-1.7); CALCIUM 8.6 mg/dL (8.5-10.1); CREATININE 1.3 mg/dL (0.7-1.3); DIRECT BILIRUBIN 0.1 mg/dL (0.0-0.2); GFR 54.9; MAGNESIUM 1.8 mg/dL (1.8-2.4); POTASSIUM 3.5 mmol/L (3.5-5.1); TOTAL BILIRUBIN 0.4 mg/dL (0.2-1.0); TOTAL PROTEIN 7.3 g/dL (6.4-8.2)
[2017-04-03] MEDS ORDERED: FUROSEMIDE 40 MG/4 ML VIAL ONE (22:27)
[2017-04-03] MEDS ORDERED: FUROSEMIDE 40 MG TABLET PO ONE (22:35)
--- NOTE | 2017-04-04 01:52 | EKG ---
[address] [address] Test Date: 2017-04-03 Test Time: 20:51:21 Pat Name: ULI VILLASEÑOR Department: Room: Gender: M Court Administrator: : [id number] Requested By: CHERI SRINIVASAN Order Number: [id number] Reading MD: Measurements Intervals [place] Rate: 74 P: -7 UT: 176 QRS: -43 QRSD: 118 T: 66 QT: 432 QTc: 480 Interpretive Statements SINUS RHYTHM COMPLEX(ES) WITH ABERRANT INTRAVENTRICULAR CONDUCTION LEFT ATRIAL ABNORMALITY ABNORMAL LEFT AXIS DEVIATION QRS(T) CONTOUR ABNORMALITY CONSISTENT WITH ANTEROSEPTAL INFARCT PROBABLY OLD T ABNORMALITY IN HIGH LATERAL LEADS RI6.01 Unconfirmed report No previous ECG available for comparison
--- NOTE | 2017-04-04 08:44 | RAD ---
INDICATION: soa COMPARISON: 04/03/2017 FINDINGS: Single frontal view of chest. Rotated exam limits evaluation. Poststernotomy changes. Coarsened lung markings bilaterally. Mild opacity at right lung base is again seen. IMPRESSION: Coarsened lung markings at the bilateral lungs is again seen and can be seen with chronic lung disease such as emphysema. Mild linear opacity at right lung base is again seen and could be residual from the patient's previously identified opacities seen on prior CT. Follow-up could be obtained to ensure this resolves.
== END 2017-04-03 22:35 | disposition home or self-care (01) ==
LOC: ER 20:12
DX: I50.9 Heart failure, unspecified (principal); R60.9 Edema, unspecified; I13.0 Hypertensive heart and chronic kidney disease with heart failure and stage 1 through stage 4 chronic kidney disease, or unspecified chronic kidney disease; N18.9 Chronic kidney disease, unspecified; M19.90 Unspecified osteoarthritis, unspecified site; J44.9 Chronic obstructive pulmonary disease, unspecified; F17.210 Nicotine dependence, cigarettes, uncomplicated; F12.10 Cannabis abuse, uncomplicated; Z95.1 Presence of aortocoronary bypass graft; Z88.8 Allergy status to other drugs, medicaments and biological substances; Z88.6 Allergy status to analgesic agent; Z91.041 Radiographic dye allergy status; Z88.5 Allergy status to narcotic agent; Z91.010 Allergy to peanuts; Z91.013 Allergy to seafood
CPT/HCPCS: 36415; 71010; 80053; 80076; 81001; 82553; 83735; 83880; 84484; 85027; 85610; 85730; 93005; 99285-25

== ENCOUNTER 2017-04-04 12:40 | Emergency (ER) | payer MEDICARE ==
[2017-04-04 13:00] VITALS: BP 130/53
[2017-04-04] MEDS ORDERED: GLUCAGON,HUMAN RECOMBINANT 1 MG KIT. IV ONE (13:40)
[2017-04-04] MEDS ORDERED: NITROGLYCERIN SUBLINGUAL 0.4 MG BOTTLE OF 25. SL ONE (13:40)
--- NOTE | 2017-04-04 14:20 | RAD ---
INDICATION: FB sensation after eating chicken COMPARISON: None. IMPRESSION: Frontal and lateral views of the neck obtained. Degenerative changes throughout the cervical spine with osteophyte formation. No prevertebral soft tissue thickening. There are some calcifications of the soft tissues overlying the oropharynx. Please note that many foreign bodies would not be seen on plain film.
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
== END 2017-04-04 15:51 | disposition short-term general hospital (02) ==
LOC: ER 12:40
DX: T18.128A Food in esophagus causing other injury, initial encounter (principal); K56.49 Other impaction of intestine; J44.9 Chronic obstructive pulmonary disease, unspecified; I13.0 Hypertensive heart and chronic kidney disease with heart failure and stage 1 through stage 4 chronic kidney disease, or unspecified chronic kidney disease; N18.9 Chronic kidney disease, unspecified; I50.9 Heart failure, unspecified; M19.90 Unspecified osteoarthritis, unspecified site; F17.210 Nicotine dependence, cigarettes, uncomplicated; F12.10 Cannabis abuse, uncomplicated; Z95.1 Presence of aortocoronary bypass graft; Z88.6 Allergy status to analgesic agent; Z88.8 Allergy status to other drugs, medicaments and biological substances; X58.XXXA Exposure to other specified factors, initial encounter; Y93.89 Activity, other specified; Y99.8 Other external cause status; Y92.89 Other specified places as the place of occurrence of the external cause
CPT/HCPCS: 70360; 99285-25

== ENCOUNTER 2017-08-05 20:59 | Emergency (ER) | payer MEDICARE ==
[~2017-08-05] VITALS: Ht 175.3 cm; Wt 66.3 kg
[~2017-08-05 20:59] MED LIST changes: -METO50TA10 PO; +METO50TA29 PO
[2017-08-05 21:05] VITALS: BP 130/53
[2017-08-05] MEDS ORDERED: ALBU18HF IH (21:32)
[2017-08-05] MEDS ORDERED: BENZ100C15 PO (21:32)
[2017-08-05] MEDS ORDERED: ALBU2.5V5 NEB (21:32)
--- NOTE | 2017-08-05 21:33 | PHYS DOC ---
Past History Past Medical History: Arthritis, CHF, COPD, Hypertension, Renal Disease, Renal Failure, Other Additional Past Medical Histor: Aortic aneurysm (5.4 cm) Past Surgical History: Coronary Bypass Surgery, Hip Replacement, Other Additional Past Surgical Histo: left iliac stent Smoking: Cigarettes Alcohol Use: None Drug Use: Marijuana Adult General HPI HPI Patient is a 58-year-old gentleman who presents here today requesting us to assist him with running prescriptions for his medications. Patient reports that [facility] and received prescriptions from his doctor that were sent to the pharmacy which she cannot afford. Patient was in the ER today requesting us to rewrite his prescription so that [facility] said [facility] help with filling up her medications. Patient reports she was recently diagnosed as a diabetic today and he was given a prescription for insulin by his doctor. Patient has no other complaints at this time. Patient has any fevers shakes chills nausea vomiting diarrhea chest pain shortness of breath cough cold rhinorrhea. Patient's x-ray here in the ED was greater than 100. Review of systems: Constitutional: Denies fever or chills Eyes: Denies change in visual acuity, redness, or eye pain HENT: Denies nasal congestion or sore throat All other systems were reviewed and found to be within normal limits, except as documented in this note. Physical exam Constitutional: Well developed, well nourished, no acute distress, non-toxic appearance. HENT: Normocephalic, atraumatic, bilateral external ears normal, oropharynx moist, no oral exudates, nose normal. Eyes: PERRLA, EOMI, conjunctiva normal, no discharge. Neck: Normal range of motion, no tenderness, supple, no stridor. Cardiovascular:Heart rate regular rhythm, Lungs & Thorax: Bilateral breath sounds clear to auscultation Abdomen: Nondistended. Skin: Warm, dry, no erythema, no rash. Back: No tenderness, no CVA tenderness. Extremities: No tenderness, no cyanosis, no clubbing, ROM intact, no edema. Neurologic: Alert and oriented X 3, normal motor function, normal sensory function, no focal deficits noted. Psychologic: Affect normal, judgement normal, mood normal. Assessment and plan 1. New onset diabetes per patient. Patient was started on insulin by his PCP. Patient has not been able to fill his prescriptions as of yet secondary to costs. The patient's prescriptions per [facility] request [facility]. 2. Medication refills. All medication that the patient requested that we refill except for the narcotics have been written for for the patient. [facility] will [facility] as [facility] his request. Allergies Allergies Allergies Coded Allergies Type Severity Reaction Last Updated Verified ketorolac Allergy Intermediate 11/12/16 Yes pseudoephedrine Allergy Intermediate 11/12/16 Yes rofecoxib Allergy Intermediate 11/12/16 Yes Fish Containing Products Allergy Unknown 12/18/16 Yes I S O L A T I O N *CONTACT* Allergy Unknown 12/17/16 Yes hydrocodone Allergy Unknown 12/18/16 Yes peanut Allergy Unknown 12/18/16 Yes tramadol Allergy Unknown 12/18/16 Yes EKG EKG [] Radiology/Procedures Radiology/Procedures [] Course & Med Decision Making Course & Med Decision Making Pertinent Labs and Imaging studies reviewed. (See chart for details) [] Dragon Disclaimer Dragon Disclaimer This electronic medical record was generated, in whole or in part, using a voice recognition dictation system. Departure Departure: Impression: Primary Impression: Diabetes Additional Impression: Encounter for medication refill Disposition: HOME, SELF-CARE Condition: STABLE Referrals: PCP,UNKNOWN (PCP) Patient Instructions: Diabetes, FAQs Scripts Albuterol Sulfate (VENTOLIN HFA INHALER) 18 Gm Hfa.aer.ad 1 PUFF IH PRN Q4HRS Y for FOR ASTHMA, #60 INHALER 0 Refills Prov: JAVIER ADAMS MD 08/05/17 Albuterol Sulfate (ALBUTEROL SULFATE NEB SOLN ) 2.5 Mg/3 Ml Vial.neb 1 VIAL NEB PRN Q4HRS, #75 VIAL Prov: JAVIER ADAMS MD 08/05/17 Benzonatate (BENZONATATE) 100 Mg Capsule 1 CAP PO TID, #30 CAP Prov: JAVIER ADAMS MD 08/05/17 Problem Qualifiers JAVIER ADAMS MD Aug 05, 2017 21:33
== END 2017-08-05 21:55 | disposition home or self-care (01) ==
LOC: ER 20:59
DX: Z76.0 Encounter for issue of repeat prescription (principal); I13.0 Hypertensive heart and chronic kidney disease with heart failure and stage 1 through stage 4 chronic kidney disease, or unspecified chronic kidney disease; E11.22 Type 2 diabetes mellitus with diabetic chronic kidney disease; N18.9 Chronic kidney disease, unspecified; J44.9 Chronic obstructive pulmonary disease, unspecified; I50.9 Heart failure, unspecified; F17.210 Nicotine dependence, cigarettes, uncomplicated; F12.10 Cannabis abuse, uncomplicated; M19.90 Unspecified osteoarthritis, unspecified site; Z95.1 Presence of aortocoronary bypass graft; Z88.8 Allergy status to other drugs, medicaments and biological substances; Z88.6 Allergy status to analgesic agent; Z88.5 Allergy status to narcotic agent; Z91.010 Allergy to peanuts; Z91.013 Allergy to seafood
CPT/HCPCS: 82947; 99283

== ENCOUNTER 2017-09-28 18:35 | Inpatient (IN) | payer MEDICARE ==
[~2017-09-28] VITALS: Ht 175.3 cm; Wt 55.9 kg
[~2017-09-28 18:35] MED LIST changes: +ALBU18HF IH; +ALBU2.5V5 NEB; +BENZ-8 PO
[2017-09-28] MEDS: IV NORMAL SALINE 1,000ML 1,000 ML IV SCH ×2 (19:06→22:46)
--- NOTE | 2017-09-28 19:06 | ED.ADGEN ---
Past History Past Medical History: Arthritis, CHF, COPD, Hypertension, Renal Disease, Renal Failure, Other Additional Past Medical Histor: Aortic aneurysm (5.4 cm) Past Surgical History: Coronary Bypass Surgery, Hip Replacement, Other Additional Past Surgical Histo: left iliac stent Smoking: Cigarettes Alcohol Use: None Drug Use: Marijuana Adult General Chief Complaint Chief Complaint " I am more short of breath..." HPI HPI Patient is a 66 year old male who presents with above hx and complaints of exacerbation of COPD. Pt. denies any changes of meds. Pt. recently followed with Dr. Rosen. Pt. Pt currently sat's 99 % on 2 liters. No recent travel or specific ill contacts. Pt. has hx multiple allergies. Recently stopped his anticoagulation. Review of Systems Review of Systems Constitutional: Subjective fever or chills [] Eyes: Denies change in visual acuity, redness, or eye pain [] HENT: has some nasal congestion and sore throat [] Respiratory:Complaints of non- productive cough , shortness of breath and wheezing. Cardiovascular: No additional information not addressed in HPI [] GI: Denies abdominal pain, nausea, vomiting, bloody stools or diarrhea [] : Denies dysuria or hematuria [] Musculoskeletal: Denies back pain or joint pain []Chronic arthritic complaints Integument: Denies rash or skin lesions [] Neurologic: Denies headache, focal weakness or sensory changes [] Endocrine: Denies polyuria or polydipsia [] All other systems were reviewed and found to be within normal limits, except as documented in this note. Family History Family History Non-contributory Current Medications Current Medications Current Medications Medications (Trade) Dose Ordered Sig/Kayla Start Time Stop Time Status Last Admin Dose Admin Albuterol/ Ipratropium (Duoneb) 3 ml STK-MED ONCE 09/28/17 21:02 09/28/17 21:03 DC Aspirin (Children'S Aspirin) 324 mg 1X ONCE 09/28/17 19:15 09/28/17 19:16 DC 09/28/17 19:43 324 MG Azithromycin (Zithromax) 500 mg 1X ONCE 09/28/17 19:15 09/28/17 19:16 DC 09/28/17 19:43 500 MG Ceftriaxone Sodium (Rocephin Im) 1 gm 1X ONCE 09/28/17 19:15 09/28/17 19:16 DC 09/28/17 19:42 1 GM Enoxaparin Sodium (Lovenox 60mg Syringe) 60 mg 1X ONCE 09/28/17 20:45 09/28/17 20:46 DC Furosemide (Lasix) 40 mg 1X ONCE 09/28/17 20:45 09/28/17 20:46 DC Methylprednisolone Sodium Succinate (SOLU-Medrol 125MG VIAL) 125 mg 1X ONCE 09/28/17 19:15 09/28/17 19:16 DC 09/28/17 19:42 125 MG Morphine Sulfate (Morphine 2mg Syringe) 2 mg PRN Q2HR PRN 09/28/17 21:00 09/29/17 20:59 Ondansetron HCl (Zofran) 4 mg PRN Q4HRS PRN 09/28/17 21:00 09/29/17 20:59 Sodium Chloride 250 ml @ As Directed STK-MED ONCE 09/28/17 21:00 09/28/17 21:01 DC Vancomycin HCl 1 gm STK-MED ONCE 09/28/17 21:00 09/28/17 21:01 DC Vancomycin HCl 1 gm/Sodium Chloride 250 ml @ 250 mls/hr 1X ONCE 09/28/17 21:00 09/28/17 21:59 DC 09/28/17 21:08 250 MLS/HR Allergies Allergies Allergies Coded Allergies Type Severity Reaction Last Updated Verified ketorolac Allergy Intermediate 11/12/16 Yes pseudoephedrine Allergy Intermediate 11/12/16 Yes rofecoxib Allergy Intermediate 11/12/16 Yes Fish Containing Products Allergy Unknown 12/18/16 Yes I S O L A T I O N *CONTACT* Allergy Unknown 12/17/16 Yes hydrocodone Allergy Unknown 12/18/16 Yes peanut Allergy Unknown 12/18/16 Yes tramadol Allergy Unknown 12/18/16 Yes Physical Exam Physical Exam Constitutional: mild distress, non-toxic appearance. [] HENT: Normocephalic, atraumatic, bilateral external ears normal, oropharynx moist, no oral exudates, nose rhinorrhea. Eyes: PERRLA, EOMI, conjunctiva normal, no discharge. [] Neck: Normal range of motion, no tenderness, supple, no stridor. [] Cardiovascular:Heart rate regular rhythm, no murmur [] Lungs & Thorax: Bilateral breath equal, scattered wheezes crackles on auscultation, old []midline scar Abdomen: Bowel sounds normal, soft, no tenderness, no masses, no pulsatile masses. [] Skin: Warm, dry, areas of ecchymosis, no rash. [] Poor turgor Back: No tenderness, no CVA tenderness. [Kyphosis Extremities: No tenderness, no cyanosis, no clubbing, ROM intact, no edema. [] Arthritic changes. Neurologic: Alert and oriented X 3, normal motor function, normal sensory function, no focal deficits noted. [] Psychologic: Affect normal, judgement normal, mood normal. [] Current Patient Data Vital Signs Vital Signs Date Time Temp Pulse Resp B/P (MAP) Pulse Ox O2 Delivery O2 Flow Rate FiO2 09/28/17 21:24 71 125/65 (85) 09/28/17 19:51 99.0 20 95 Nasal Cannula Lab Results Laboratory Tests Test 09/28/17 19:00 09/28/17 20:00 09/28/17 20:34 White Blood Count 13.4 x10^3/uL (4.0-11.0) H Red Blood Count 2.90 x10^6/uL (4.30-5.70) L Hemoglobin 8.3 g/dL (13.0-17.5) L Hematocrit 25.9 % (39.0-53.0) L Mean Corpuscular Volume 89 fL (79-100) Mean Corpuscular Hemoglobin 29 pg (25-35) Mean Corpuscular Hemoglobin Concent 32 g/dL (31-37) Red Cell Distribution Width 19.1 % (11.5-14.5) H Platelet Count 256 x10^3/uL (140-400) Neutrophils (%) (Auto) 96 % (31-73) H Lymphocytes (%) (Auto) 1 % (24-48) L Monocytes (%) (Auto) 3 % (0-9) Eosinophils (%) (Auto) 0 % (0-3) Basophils (%) (Auto) 0 % (0-3) Neutrophils # (Auto) 12.9 x10^3uL (1.8-7.7) H Lymphocytes # (Auto) 0.1 x10^3/uL (1.0-4.8) L Monocytes # (Auto) 0.4 x10^3/uL (0.0-1.1) Eosinophils # (Auto) 0.0 x10^3/uL (0.0-0.7) Basophils # (Auto) 0.0 x10^3/uL (0.0-0.2) Prothrombin Time 11.6 SEC (9.4-11.4) H Prothrombin Time INR 1.1 (0.9-1.1) PTT 27 SEC (23-33) D-Dimer (Lenora) 1.34 mg/L (0.00-0.50) H Sodium Level 143 mmol/L (136-145) Potassium Level 5.4 mmol/L (3.5-5.1) H Chloride Level 103 mmol/L (98-107) Carbon Dioxide Level 31 mmol/L (21-32) Anion Gap 9 (6-14) Blood Urea Nitrogen 93 mg/dL (8-26) H Creatinine 2.3 mg/dL (0.7-1.3) H Estimated GFR (Cockcroft-Gault) 28.4 Glucose Level 135 mg/dL (70-99) H Lactic Acid Level 0.9 mmol/L (0.4-2.0) Calcium Level 9.1 mg/dL (8.5-10.1) Magnesium Level 3.1 mg/dL (1.8-2.4) H Total Bilirubin 0.4 mg/dL (0.2-1.0) Direct Bilirubin 0.2 mg/dL (0.0-0.2) Aspartate Amino Transferase (AST) 14 U/L (15-37) L Alanine Aminotransferase (ALT) 19 U/L (16-63) Alkaline Phosphatase 97 U/L (46-116) Creatine Kinase 55 U/L (39-308) Creatine Kinase MB (Mass) 5.0 ng/mL (0.0-3.6) H Creatine Kinase MB Relative Index 9.1 % (0-4) H Troponin I Quantitative 0.038 ng/mL (0-0.055) QF-Zgx-O-Type Natriuretic Peptide 3543 pg/mL (0-124) H Total Protein 6.1 g/dL (6.4-8.2) L Albumin 3.2 g/dL (3.4-5.0) L Lipase 49 U/L (73-393) L Influenza Type A (Rapid) Negative (NEGATIVE) Influenza Type B (Rapid) Negative (NEGATIVE) Urine Collection Type Unknown Urine Color Yellow Urine Clarity Clear Urine pH 5.0 Urine Specific [place] 1.015 Urine Protein Neg (NEG-TRACE) Urine Glucose (UA) Neg mg/dL (NEG) Urine Ketones (Stick) Neg mg/dL (NEG) Urine Blood Neg (NEG) Urine Nitrite Neg (NEG) Urine Bilirubin Neg (NEG) Urine Urobilinogen Dipstick 0.2 mg/dL (0.2 mg/dL) Urine Leukocyte Esterase Neg (NEG) Urine RBC 3-5 /HPF (0-2) Urine WBC 5-10 /HPF (0-4) Urine Squamous Epithelial Cells Few /LPF Urine Bacteria 0 /HPF (0-FEW) Urine Hyaline Casts Many /HPF Urine Mucus Marked /LPF Urine Opiates Screen Pos (NEG) Urine Methadone Screen Neg (NEG) Urine Barbiturates Neg (NEG) Urine Phencyclidine Screen Neg (NEG) Urine Amphetamine/Methamphetamine Neg (NEG) Urine Benzodiazepines Screen Neg (NEG) Urine Cocaine Screen Neg (NEG) Urine Cannabinoids Screen Neg (NEG) Urine Ethyl Alcohol Neg (NEG) EKG EKG My interpretation EKG shows a sinus rhythm at 65 bpm with left axis deviation. Prolonged QT interval. No findings acute STEMI of contralateral changes[] Radiology/Procedures Radiology/Procedures I interpretation chest x-ray shows cardiomegaly. COPD with some patchy areas. His coronary artery bypass sternal wires and clips along cardiac borders. Degenerative joint changes.[]Cephalization consistent with CHF. Course & Med Decision Making Course & Med Decision Making Pertinent Labs and Imaging studies reviewed. (See chart for details). Discussed presentation, testing and tx. plan with Dr. Reyna. Aware of pt., has been at [facility] two to three times past couple months. Asked pt. received expanded antibiotic overage. CT of chest pending at time of admit. [] Final Impression Final Impression 1. COPD exacerbation[] 2. Dyspnea 3. Elevated D-dimer 4. Leukocytosis 5. Anemia 6. Hyperkalemia 7. DM 8. Elevated BUN/Creat- Renal Insuf. 9. Malnutrition 10.CHF 11. Deconditioned Problems: Dragon Disclaimer Dragon Disclaimer This electronic medical record was generated, in whole or in part, using a voice recognition dictation system. GIANCARLO ACOSTA MD Sep 28, 2017 19:06
[2017-09-28] MEDS ORDERED: methylPREDNISolone SOD SUCC PF 125 MG/2 ML VIAL. IV ONE (19:15)
[2017-09-28] MEDS ORDERED: AZITHROMYCIN 250 MG TABLET. PO ONE (19:15)
[2017-09-28] MEDS ORDERED: cefTRIAXone IM 1 GM VIAL IM ONE (19:15)
[2017-09-28] MEDS ORDERED: ASPIRIN 81 MG TAB.CHEW PO ONE (19:15)
[2017-09-28 19:28] LABS: BASO % 0 % (0-3); EOS % 0 % (0-3); HEMATOCRIT 25.9 % (39.0-53.0); HEMOGLOBIN 8.3 g/dL (13.0-17.5); LYMPH # 0.1 x10^3/uL (1.0-4.8); LYMPH % 1 % (24-48); MEAN CORPUSCULAR HEMOGLOBIN 29 pg (25-35); MEAN CORPUSCULAR HGB CONC 32 g/dL (31-37); MEAN CORPUSCULAR VOLUME 89 fL (79-100); MONO # 0.4 x10^3/uL (0.0-1.1); MONO % 3 % (0-9); NEUT # 12.9 x10^3uL (1.8-7.7); NEUT % 96 % (31-73); PLATELET COUNT 256 x10^3/uL (140-400); RED CELL DISTRIBUTION WIDTH 19.1 % (11.5-14.5); WHITE BLOOD COUNT 13.4 x10^3/uL (4.0-11.0)
[2017-09-28 19:48] LABS: ALBUMIN 3.2 g/dL (3.4-5.0); CALCIUM 9.1 mg/dL (8.5-10.1); CREATININE 2.3 mg/dL (0.7-1.3); DIRECT BILIRUBIN 0.2 mg/dL (0.0-0.2); GFR 28.4; MAGNESIUM 3.1 mg/dL (1.8-2.4); POTASSIUM 5.4 mmol/L (3.5-5.1); TOTAL BILIRUBIN 0.4 mg/dL (0.2-1.0); TOTAL PROTEIN 6.1 g/dL (6.4-8.2)
--- NOTE | 2017-09-28 20:22 | EKG ---
[address] [address] Test Date: 2017-09-28 Test Time: 18:48:52 Pat Name: ULI VILLASEÑOR Department: Room: Gender: M [employer]: F[employer] : 1950 Requested By: GIANCARLO ACOSTA Order Number: [id number] Reading MD: Will Alvarez MD Measurements Intervals [place] Rate: 65 P: 54 SC: 170 QRS: -49 QRSD: 108 T: 99 QT: 466 QTc: 485 Interpretive Statements SINUS RHYTHM ABNORMAL LEFT AXIS DEVIATION ANTEROSEPTAL INFARCT LVH WITH REPOLARIZATION ABNORMALITY PROLONGED QT ABNORMAL ECG Electronically Signed On 09-30-2017 11:12:50 TIER IN by Will Alvarez MD
[2017-09-28] MEDS ORDERED: FUROSEMIDE 40 MG/4 ML VIAL IVP ONE (20:45)
[2017-09-28] MEDS ORDERED: ENOXAPARIN ** NOTE DOSE ** SYRINGE SQ ONE (20:45)
[2017-09-28] MEDS ORDERED: ONDANSETRON PF 4 MG/2 ML VIAL. IV PRN (21:00)
[2017-09-28] MEDS ORDERED: VANCOMYCIN 1 GM in IV NORMAL SALINE 250ML 250 ML IV ONE (21:00)
[2017-09-28] MEDS ORDERED: IV NORMAL SALINE 250ML 250 ML ONE (21:00)
[2017-09-28] MEDS ORDERED: VANCOMYCIN 1 GM VIAL. ONE (21:00)
[2017-09-28] MEDS ORDERED: MORPHINE SULFATE 2 MG/ML DISP.SYRIN. IV PRN (21:00)
[2017-09-28] MEDS ORDERED: IPRATRPIUM/ALBUTEROL 0.5/2.5MG 3 ML NEBU. ONE (21:02)
[2017-09-28 21:05] LABS: INFLUENZA A PATIENT NEGATIVE (NEGATIVE); INFLUENZA B PATIENT NEGATIVE (NEGATIVE)
[2017-09-28 21:24] LABS: AMPHETAMINE/METHAMPHETAMINE NEG (NEG); BARBITURATES NEG (NEG); BENZODIAZEPINES NEG (NEG); CANNABINOIDS NEG (NEG); COCAINE NEG (NEG); METHADONE NEG (NEG); OPIATES POS (NEG); PHENCYCLIDINE NEG (NEG)
[2017-09-28 21:25] LABS: BILIRUBIN,URINE NEG (NEG); CLARITY,URINE CLEAR; COLOR,URINE YELLOW; GLUCOSE,URINE NEG (NEG)
[2017-09-28 21:26] LABS: BACTERIA,URINE 0 /HPF (0-FEW); NITRITE,URINE NEG (NEG); SQUAMOUS EPITHELIAL CELL,UR FEW /LPF; UROBILINOGEN,URINE 0.2 mg/dL (0.2 mg/dL)
[2017-09-28 21:27] LABS: HYALINE CASTS, URINE MANY /HPF
[2017-09-28 22:38] VITALS: BP 116/52
[2017-09-28] MEDS: SODIUM POLYSTYRENE SULFONATE 15 GM/60 ML ORAL.SUSP. PO SCH (22:47)
[2017-09-29 05:15] VITALS: BP 112/61
[2017-09-29] MEDS ORDERED: ALBUTEROL SULFATE 2.5 MG/3 ML NEBU. NEB PRN (07:15)
[2017-09-29 07:44] LABS: BASO % 0 % (0-3); EOS % 0 % (0-3); HEMATOCRIT 22.2 % (39.0-53.0); HEMOGLOBIN 7.1 g/dL (13.0-17.5); LYMPH # 0.1 x10^3/uL (1.0-4.8); LYMPH % 1 % (24-48); MEAN CORPUSCULAR HEMOGLOBIN 29 pg (25-35); MEAN CORPUSCULAR HGB CONC 32 g/dL (31-37); MEAN CORPUSCULAR VOLUME 90 fL (79-100); MONO # 0.2 x10^3/uL (0.0-1.1); MONO % 3 % (0-9); NEUT # 5.8 x10^3uL (1.8-7.7); NEUT % 96 % (31-73); PLATELET COUNT 188 x10^3/uL (140-400); RED BLOOD COUNT 2.47 x10^6/uL (4.30-5.70); RED CELL DISTRIBUTION WIDTH 19.3 % (11.5-14.5); WHITE BLOOD COUNT 6.1 x10^3/uL (4.0-11.0)
[2017-09-29 08:00] LABS: CALCIUM 8.1 mg/dL (8.5-10.1); CREATININE 1.8 mg/dL (0.7-1.3); GFR 37.7; POTASSIUM 4.5 mmol/L (3.5-5.1)
--- NOTE | 2017-09-29 08:37 | RAD ---
Portable chest, 09/28/2017: History: Shortness of breath, hip fracture Comparison is made to a study from 04/03/2017. There is been a previous median sternotomy. The patient is rotated to the right. The heart size is normal. There are scattered parenchymal scars. No acute infiltrate is seen. There is no evidence of pleural fluid or pneumothorax. Severe arthritic changes are present at both shoulders. IMPRESSION: 1. Chronic findings as described above. 2. No acute abnormality is detected.
[2017-09-29] MEDS ORDERED: OXYC15TA PO (08:43)
[2017-09-29] MEDS ORDERED: HYDROcodone/APAP 5/325MG 1 TAB TABLET PO SCH (09:00)
[2017-09-29] MEDS ORDERED: LISINOPRIL 5 MG TABLET. PO SCH (09:00)
[2017-09-29] MEDS ORDERED: CETIRIZINE HCL 10 MG TABLET PO SCH (09:00)
[2017-09-29] MEDS ORDERED: NON FORMULARY ITEM (Tiotropium Bromide (Spiriva) 18 MCG) IH SCH (09:00)
[2017-09-29] MEDS ORDERED: FUROSEMIDE 40 MG TABLET PO SCH (09:00)
[2017-09-29] MEDS ORDERED: METOPROLOL SUCC 24HR ER 50 MG TAB.ER.24H. PO SCH (09:00)
[2017-09-29] MEDS: SODIUM POLYSTYRENE SULFONATE 15 GM/60 ML ORAL.SUSP. PO SCH ×2 (09:00→12:37)
[2017-09-29] MEDS: FERROUS SULFATE 325 MG TABLET. PO SCH ×2 (09:38→20:17)
[2017-09-29] MEDS: BENZONATATE 100 MG CAPSULE. PO SCH ×3 (09:38→20:19)
[2017-09-29] MEDS: ASPIRIN 81 MG TAB.CHEW PO SCH (09:38)
[2017-09-29] MEDS: cefTRIAXone IV Push 1 GM VIAL. IVP SCH (09:38)
[2017-09-29] MEDS: AZITHROMYCIN 250 MG TABLET. PO SCH (09:38)
[2017-09-29] MEDS ORDERED: IPRATRPIUM/ALBUTEROL 0.5/2.5MG 3 ML NEBU. ONE ×2 (09:46→15:09)
[2017-09-29 09:56] VITALS: BP 118/57
--- NOTE | 2017-09-29 09:58 | RAD ---
Bilateral lower extremity venous Doppler 09/29/2017 Clinical indication: Elevated d-dimer. Comparison: Ultrasound 12/17/2016, 11/11/2016. Findings: Grayscale, color Doppler and spectral waveform analysis of the bilateral lower extremity deep venous system was performed with serial graded compression augmentation. Bilateral common femoral, femoral and popliteal veins are patent with normal color Doppler imaging. Limited evaluation of the bilateral lower extremity calf veins are unremarkable. Impression: No evidence of DVT in the bilateral lower extremities.
[2017-09-29] MEDS ORDERED: OXYC5CAP PO (10:18)
[2017-09-29 10:19] LABS: BGAS PH 7.39 (7.35-7.46)
[2017-09-29] MEDS ORDERED: oxyCODONE IR 5 MG TABLET PO PRN (10:30)
[2017-09-29] MEDS ORDERED: IV NORMAL SALINE 1,000ML 1,000 ML IV SCH (10:30)
[2017-09-29] MEDS: PANTOPRAZOLE 40 MG TABLET. PO SCH ×2 (10:31→20:18)
[2017-09-29] MEDS: ASCORBIC ACID 500 MG TABLET PO SCH ×2 (10:31→20:18)
[2017-09-29] MEDS ORDERED: TIOT18CA IH (11:42)
[2017-09-29] MEDS ORDERED: AMIO200T2 PO (12:38)
[2017-09-29] MEDS: oxyCODONE IR 5 MG TABLET PO PRN ×2 (14:11→20:18)
[2017-09-29] MEDS: methylPREDNISolone SOD SUCC PF 40 MG/ML VIAL. IV SCH ×2 (14:11→21:38)
[2017-09-29] MEDS: IV DEXTROSE 5 %-0.2 % NACL 1,000 ML IV SCH (14:12)
[2017-09-29 14:14] VITALS: BP 138/66
[2017-09-29 18:13] VITALS: BP 111/56
[2017-09-29] MEDS ORDERED: DEXTROSE 50% 25 GM / 50ML DISP.SYRIN. IV PRN (19:00)
[2017-09-29] MEDS: PRAVASTATIN 20 MG TABLET. PO SCH (20:19)
[2017-09-29] MEDS: ENOXAPARIN ** NOTE DOSE ** SYRINGE SQ SCH (20:21)
[2017-09-29] MEDS: INSULIN ASPART 300 UNITS/3 ML INSULN.PEN SQ SCH (20:21)
[2017-09-29] MEDS: IPRATRPIUM/ALBUTEROL 0.5/2.5MG 3 ML NEBU. NEB SCH (20:36)
[2017-09-29] MEDS ORDERED: ENOXAPARIN ** NOTE DOSE ** SYRINGE SQ SCH ×2 (21:00)
[2017-09-30 00:05] VITALS: BP 133/51
[2017-09-30] MEDS: guaiFENesin DM 200MG/20MG 10 ML SYRUP PO PRN (02:51)
[2017-09-30] MEDS: oxyCODONE IR 5 MG TABLET PO PRN (02:52)
[2017-09-30] MEDS: IV DEXTROSE 5 %-0.2 % NACL 1,000 ML IV SCH ×2 (02:52→12:56)
[2017-09-30 05:12] VITALS: BP 139/70
[2017-09-30] MEDS: methylPREDNISolone SOD SUCC PF 40 MG/ML VIAL. IV SCH ×2 (05:26→18:30)
[2017-09-30] MEDS: IPRATRPIUM/ALBUTEROL 0.5/2.5MG 3 ML NEBU. NEB SCH ×4 (05:58→21:04)
[2017-09-30 07:04] LABS: RED BLOOD COUNT 2.17 x10^6/uL (4.30-5.70); WHITE BLOOD COUNT 7.9 x10^3/uL (4.0-11.0)
[2017-09-30 07:11] LABS: CALCIUM 8.3 mg/dL (8.5-10.1); CREATININE 1.3 mg/dL (0.7-1.3); GFR 54.9; MAGNESIUM 2.2 mg/dL (1.8-2.4); POTASSIUM 3.5 mmol/L (3.5-5.1)
[2017-09-30 07:13] LABS: HEMATOCRIT 19.4 % (39.0-53.0); HEMOGLOBIN 6.3 g/dL (13.0-17.5)
[2017-09-30] MEDS: ENOXAPARIN ** NOTE DOSE ** SYRINGE SQ SCH ×2 (08:03→20:58)
[2017-09-30] MEDS: BENZONATATE 100 MG CAPSULE. PO SCH ×3 (08:04→21:03)
[2017-09-30] MEDS: FERROUS SULFATE 325 MG TABLET. PO SCH ×2 (08:04→21:03)
[2017-09-30] MEDS: ASCORBIC ACID 500 MG TABLET PO SCH ×2 (08:04→21:03)
[2017-09-30] MEDS: ASPIRIN 81 MG TAB.CHEW PO SCH (08:04)
[2017-09-30] MEDS: AZITHROMYCIN 250 MG TABLET. PO SCH (08:04)
[2017-09-30] MEDS: PANTOPRAZOLE 40 MG TABLET. PO SCH (08:04)
[2017-09-30] MEDS: cefTRIAXone IV Push 1 GM VIAL. IVP SCH (08:06)
[2017-09-30] MEDS: INSULIN ASPART 300 UNITS/3 ML INSULN.PEN SQ SCH ×4 (08:20→21:00)
[2017-09-30 11:24] VITALS: BP 113/55
[2017-09-30] MEDS: oxyCODONE IR 5 MG TABLET PO SCH ×2 (14:31→18:31)
[2017-09-30 15:17] VITALS: BP 119/54
[2017-09-30 19:00] VITALS: BP 132/65
[2017-09-30 19:40] LABS: FECAL OB PT NEGATIVE (NEG)
[2017-09-30] MEDS: LACTOBACILLUS RHAMNOSUS GG 1 CAPSULE. PO SCH (21:02)
[2017-09-30] MEDS: PRAVASTATIN 20 MG TABLET. PO SCH (21:03)
[2017-09-30 23:44] LABS: HEMATOCRIT 21.2 % (39.0-53.0)
[2017-09-30 23:52] LABS: HEMOGLOBIN 6.9 g/dL (13.0-17.5)
[2017-10-01] VITALS (21 sets, daily range): BP systolic 99–170; BP diastolic 42–83
[2017-10-01] MEDS: methylPREDNISolone SOD SUCC PF 40 MG/ML VIAL. IV SCH (05:49)
[2017-10-01] MEDS: IV DEXTROSE 5 %-0.2 % NACL 1,000 ML IV SCH (05:50)
[2017-10-01] MEDS: oxyCODONE IR 5 MG TABLET PO SCH ×6 (05:50→15:20)
[2017-10-01 06:21] LABS: HEMATOCRIT 20.1 % (39.0-53.0); RED BLOOD COUNT 2.27 x10^6/uL (4.30-5.70); RED CELL DISTRIBUTION WIDTH 18.6 % (11.5-14.5); WHITE BLOOD COUNT 9.6 x10^3/uL (4.0-11.0)
[2017-10-01 06:34] LABS: ALBUMIN 2.2 g/dL (3.4-5.0); ALBUMIN/GLOBULIN RATIO 0.8 (1.0-1.7); CALCIUM 8.3 mg/dL (8.5-10.1); GFR 74.3; MAGNESIUM 2.1 mg/dL (1.8-2.4); POTASSIUM 3.3 mmol/L (3.5-5.1); TOTAL BILIRUBIN 0.2 mg/dL (0.2-1.0)
[2017-10-01 06:57] LABS: HEMOGLOBIN 6.6 g/dL (13.0-17.5)
[2017-10-01] MEDS ORDERED: POTASSIUM CHLORIDE 20 MEQ TABLET.ER. PO ONE ×2 (07:45→14:45)
[2017-10-01] MEDS: BENZONATATE 100 MG CAPSULE. PO SCH ×3 (07:56→21:01)
[2017-10-01] MEDS: AZITHROMYCIN 250 MG TABLET. PO SCH (07:56)
[2017-10-01] MEDS: LACTOBACILLUS RHAMNOSUS GG 1 CAPSULE. PO SCH ×2 (07:56→21:01)
[2017-10-01] MEDS: FERROUS SULFATE 325 MG TABLET. PO SCH ×2 (07:56→21:02)
[2017-10-01] MEDS: ENOXAPARIN ** NOTE DOSE ** SYRINGE SQ SCH ×2 (07:56→21:03)
[2017-10-01] MEDS: ASPIRIN 81 MG TAB.CHEW PO SCH (07:57)
[2017-10-01] MEDS: ASCORBIC ACID 500 MG TABLET PO SCH ×2 (07:57→21:01)
[2017-10-01] MEDS: PANTOPRAZOLE 40 MG PACKET. PO SCH (07:57)
[2017-10-01] MEDS: cefTRIAXone IV Push 1 GM VIAL. IVP SCH (07:58)
[2017-10-01] MEDS: INSULIN ASPART 300 UNITS/3 ML INSULN.PEN SQ SCH ×4 (08:01→21:26)
[2017-10-01] MEDS: ACETAMINOPHEN 325 MG TABLET PO PRN ×2 (08:54→14:47)
--- NOTE | 2017-10-01 08:54 | RAD ---
Portable chest, 10/01/2017: History: COPD versus CHF Comparison is made to a study from 09/28/2012. There has been a previous median sternotomy. The patient is rotated to the right. The heart appears to be within normal limits in size. There are unchanged linear parenchymal opacities compatible with scars. A previous CT study demonstrated moderate emphysematous changes in the lungs. No acute infiltrate is seen. No pleural fluid is evident. The bony structures are demineralized. IMPRESSION: 1. Emphysema with parenchymal scarring. 2. No change since 09/28/2012.
--- NOTE | 2017-10-01 14:38 | RAD ---
Right upper extremity venous Doppler 08/01/2018 Clinical indication: Right upper extremity swelling. Comparison: None. Findings: Visualized portions of the right internal jugular, medial subclavian, mid subclavian and lateral subclavian veins are patent with normal color Doppler imaging. There is a short segment of the distal arm which is not visualized due to overlying bandages. Right axillary vein is patent with normal color Doppler imaging. The basilic vein is not identified. The visualized portions of the cephalic and brachial veins are patent with normal color Doppler imaging. There is a PICC which appears to be within the brachial vein. Visualized radial and ulnar veins are patent with normal color Doppler imaging. Impression: 1. A portion of the distal arm is not visualized due to overlying bandages and the basilic vein is not identified and patency cannot be assessed. 2. Within these limitations, no evidence of right upper extremity thrombus. 3. PICC which appears to be within a brachial vein. Clinical correlation is recommended.
--- NOTE | 2017-10-01 15:35 | PDOC ---
PROVIDER NOTE PROVIDER NOTE PROVIDER NOTE CC: Mental status changes HPI: Pleasant 66 y.o man admitted for MS changes originally. He had renal failure. Cardiology asked to see patient for arrhythmia. He has extensive history as noted below. Denies any chest pain, palpitations. Has dyspnea and some fatigue today. 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 PMhx: 1. CAD s/p CABG, last cath 09/2016 at [facility] with SANCHEZ to LAD, SVG to OM and PDA patent. 2. HTN 3. Afib - paroxysmal - on eliquis previously and amiodarone 4. PAD Sochx: Lives with daughter. +smoker Famhx: NC ROS: Negative for 06/28 systems reviewed unless otherwise noted above in HPI. Physical Exam: VSS H/N: NC/AT CVS: RRR, no m/r/g PULM: Decreased breath sounds bilaterally ABD: Soft, mildly distended EXT: No significant edema. Diminished pulses. NEURO:No lateralizing signs. Diagnostic testing: Tele - SR with PAC's and SVT with aberrancy Labs reviewed. Prior echo per report from last year with EF of 40% Impression: 1. Chronic resp failure with acute exacerbation in the setting of anemia and pulm disease 2. CAD s/p CABG, currently angina free 3. Ischemic CMP - currently compensated. 4. HTN 5. PAF RECS: 1. Given anemia, recommend holding eliquis and reassess on an outpt basis for afib anticoagulation. 2. Restart home metoprolol and lisinopril. 3. Ok to restart home amiodarone for rhythm control but patient should have discussion with outpt after school teacher given jail benefit/risk with his emphysema. 4. Use lasix prn for dyspnea or edema. 5. Restart spironolactone tomorrow. Thanks for consultation. KARELY MCKEON MD Oct 01, 2017 15:35
[2017-10-01] MEDS ORDERED: APIX5TAB3 PO (17:18)
[2017-10-01] MEDS ORDERED: CARV12.52 PO (17:18)
[2017-10-01] MEDS ORDERED: SPIR25TA3 PO (17:18)
[2017-10-01] MEDS ORDERED: METO50TA29 PO (17:48)
[2017-10-01] MEDS: guaiFENesin DM 200MG/20MG 10 ML SYRUP PO PRN (18:00)
[2017-10-01] MEDS ORDERED: METOPROLOL TART IMMED RELEASE 50 MG TABLET PO ONE (21:00)
[2017-10-01] MEDS: POTASSIUM CHLORIDE 20 MEQ TABLET.ER. PO SCH (21:02)
[2017-10-01] MEDS: PRAVASTATIN 20 MG TABLET. PO SCH (21:03)
[2017-10-02] VITALS (7 sets, daily range): BP systolic 133–168; BP diastolic 65–82
[2017-10-02] MEDS: oxyCODONE IR 5 MG TABLET PO SCH ×5 (00:32→22:24)
[2017-10-02] MEDS: PANTOPRAZOLE 40 MG PACKET. PO SCH (06:23)
[2017-10-02 06:28] LABS: HEMATOCRIT 30.8 % (39.0-53.0); HEMOGLOBIN 9.9 g/dL (13.0-17.5); RED BLOOD COUNT 3.45 x10^6/uL (4.30-5.70); RED CELL DISTRIBUTION WIDTH 18.7 % (11.5-14.5); WHITE BLOOD COUNT 10.2 x10^3/uL (4.0-11.0)
[2017-10-02 06:50] LABS: ALBUMIN 2.3 g/dL (3.4-5.0); ALBUMIN/GLOBULIN RATIO 0.8 (1.0-1.7); CALCIUM 8.5 mg/dL (8.5-10.1); GFR 74.3; POTASSIUM 4.2 mmol/L (3.5-5.1); TOTAL BILIRUBIN 0.3 mg/dL (0.2-1.0); TOTAL PROTEIN 5.2 g/dL (6.4-8.2)
[2017-10-02] MEDS: guaiFENesin DM 200MG/20MG 10 ML SYRUP PO PRN (07:48)
[2017-10-02] MEDS: SPIRONOLACTONE 25 MG TABLET PO SCH (07:49)
[2017-10-02] MEDS: BENZONATATE 100 MG CAPSULE. PO SCH ×3 (07:49→20:12)
[2017-10-02] MEDS: ASCORBIC ACID 500 MG TABLET PO SCH ×2 (07:49→20:13)
[2017-10-02] MEDS: LISINOPRIL 5 MG TABLET. PO SCH (07:49)
[2017-10-02] MEDS: LACTOBACILLUS RHAMNOSUS GG 1 CAPSULE. PO SCH ×2 (07:49→20:12)
[2017-10-02] MEDS: FERROUS SULFATE 325 MG TABLET. PO SCH ×2 (07:50→20:12)
[2017-10-02] MEDS: AZITHROMYCIN 250 MG TABLET. PO SCH (07:50)
[2017-10-02] MEDS: METOPROLOL SUCC 24HR ER 50 MG TAB.ER.24H. PO SCH (07:50)
[2017-10-02] MEDS: ASPIRIN 81 MG TAB.CHEW PO SCH (07:50)
[2017-10-02] MEDS: methylPREDNISolone SOD SUCC PF 40 MG/ML VIAL. IV SCH (07:50)
[2017-10-02] MEDS: cefTRIAXone IV Push 1 GM VIAL. IVP SCH (07:52)
[2017-10-02] MEDS: POTASSIUM CHLORIDE 20 MEQ TABLET.ER. PO SCH ×3 (07:52→20:13)
[2017-10-02] MEDS: INSULIN ASPART 300 UNITS/3 ML INSULN.PEN SQ SCH ×3 (07:53→20:24)
[2017-10-02] MEDS: ENOXAPARIN ** NOTE DOSE ** SYRINGE SQ SCH (08:02)
--- NOTE | 2017-10-02 08:54 | PDOC ---
PROGRESS NOTES Diagnosis Problem Problems Medical Problems: (1) COPD exacerbation Status: Acute Assessment Problems Medical Problems: (1) COPD exacerbation Status: Acute 1. Chronic resp failure with acute exacerbation in the setting of anemia and pulm disease 2. CAD s/p CABG, currently angina free 3. Ischemic CMP - currently compensated. 4. anemia s/p PRBCs 5. HTN 6. PAF Will repeat CXR secondary to increased dyspnea today after PRBCs, he does not appear particularly volume overloaded however. Continue medical mgmt and resume aldactone today as ordered. Problems: Subjective c/o dyspnea, no chest pain, palpitations, c/o upper extremity edema Objective Vital Signs Date Time Temp Pulse Resp B/P (MAP) Pulse Ox O2 Delivery O2 Flow Rate FiO2 10/02/17 08:00 Nasal Cannula 2.0 10/02/17 07:50 88 10/02/17 06:13 24 161/82 (108) 95 10/01/17 19:00 97.9 Intake and Output 10/02/17 07:00 Intake Total 1260 ml Output Total 800 ml Balance 460 ml Intake Oral 960 ml Other 300 ml Output Urine Total 800 ml # Voids 1 # Bowel Movements 1 Abdomen: Normal bowel sounds, Soft, No tenderness Heart: Regular rate, Normal S1, Normal S2 Extremities: No cyanosis, Normal pulses, Other (+2 bilateral upper extremtiy edema, trace lower extremity edema) General: Alert, Oriented X3, Cooperative Lungs: Other (decreased throughout) Neuro: Normal speech, Strength at 5/5 X4 ext Psych/Mental Status: Mental status NL, Mood NL Review of Relevant I have reviewed the following items josep (where applicable) has been applied. Labs Laboratory Tests Test 09/30/17 11:45 09/30/17 16:40 09/30/17 18:25 09/30/17 20:42 Glucose (Fingerstick) 205 mg/dL (70-99) 198 mg/dL (70-99) 103 mg/dL (70-99) Stool Occult Blood Negative (NEG) Test 09/30/17 23:36 10/01/17 05:34 10/01/17 07:35 10/01/17 11:29 Hemoglobin 6.9 g/dL (13.0-17.5) 6.6 g/dL (13.0-17.5) Hematocrit 21.2 % (39.0-53.0) 20.1 % (39.0-53.0) Mean Corpuscular Hemoglobin Concent 33 g/dL (31-37) 33 g/dL (31-37) White Blood Count 9.6 x10^3/uL (4.0-11.0) Red Blood Count 2.27 x10^6/uL (4.30-5.70) Mean Corpuscular Volume 89 fL (79-100) Mean Corpuscular Hemoglobin 29 pg (25-35) Red Cell Distribution Width 18.6 % (11.5-14.5) Platelet Count 159 x10^3/uL (140-400) Sodium Level 143 mmol/L (136-145) Potassium Level 3.3 mmol/L (3.5-5.1) Chloride Level 105 mmol/L (98-107) Carbon Dioxide Level 35 mmol/L (21-32) Anion Gap 3 (6-14) Blood Urea Nitrogen 37 mg/dL (8-26) Creatinine 1.0 mg/dL (0.7-1.3) Estimated GFR (Cockcroft-Gault) 74.3 BUN/Creatinine Ratio 37 (6-20) Glucose Level 213 mg/dL (70-99) Calcium Level 8.3 mg/dL (8.5-10.1) Magnesium Level 2.1 mg/dL (1.8-2.4) Total Bilirubin 0.2 mg/dL (0.2-1.0) Aspartate Amino Transf (AST/SGOT) 10 U/L (15-37) Alanine Aminotransferase (ALT/SGPT) 13 U/L (16-63) Alkaline Phosphatase 73 U/L (46-116) Total Protein 5.0 g/dL (6.4-8.2) Albumin 2.2 g/dL (3.4-5.0) Albumin/Globulin Ratio 0.8 (1.0-1.7) Glucose (Fingerstick) 162 mg/dL (70-99) 109 mg/dL (70-99) Test 10/01/17 16:25 10/01/17 20:45 10/02/17 05:35 10/02/17 07:29 Glucose (Fingerstick) 248 mg/dL (70-99) 267 mg/dL (70-99) 85 mg/dL (70-99) White Blood Count 10.2 x10^3/uL (4.0-11.0) Red Blood Count 3.45 x10^6/uL (4.30-5.70) Hemoglobin 9.9 g/dL (13.0-17.5) Hematocrit 30.8 % (39.0-53.0) Mean Corpuscular Volume 90 fL (79-100) Mean Corpuscular Hemoglobin 29 pg (25-35) Mean Corpuscular Hemoglobin Concent 32 g/dL (31-37) Red Cell Distribution Width 18.7 % (11.5-14.5) Platelet Count 146 x10^3/uL (140-400) Sodium Level 145 mmol/L (136-145) Potassium Level 4.2 mmol/L (3.5-5.1) Chloride Level 107 mmol/L (98-107) Carbon Dioxide Level 36 mmol/L (21-32) Anion Gap 2 (6-14) Blood Urea Nitrogen 36 mg/dL (8-26) Creatinine 1.0 mg/dL (0.7-1.3) Estimated GFR (Cockcroft-Gault) 74.3 BUN/Creatinine Ratio 36 (6-20) Glucose Level 106 mg/dL (70-99) Calcium Level 8.5 mg/dL (8.5-10.1) Magnesium Level 2.1 mg/dL (1.8-2.4) Total Bilirubin 0.3 mg/dL (0.2-1.0) Aspartate Amino Transf (AST/SGOT) 9 U/L (15-37) Alanine Aminotransferase (ALT/SGPT) 16 U/L (16-63) Alkaline Phosphatase 86 U/L (46-116) YK-Rdp-A-Type Natriuretic Peptide 6681 pg/mL (0-124) Total Protein 5.2 g/dL (6.4-8.2) Albumin 2.3 g/dL (3.4-5.0) Albumin/Globulin Ratio 0.8 (1.0-1.7) Microbiology 09/28/17 Blood Culture - Preliminary, Resulted NO GROWTH AFTER 3 DAYS 09/28/17 Urine Culture - Final, Complete 09/28/17 Urine Culture Result 1 (LUTHER) - Final, Complete Medications Current Medications Aspirin (Children'S Aspirin) 324 mg 1X ONCE PO Last administered on 09/28/17at 19:43; Start 09/28/17 at 19:15; Stop 09/28/17 at 19:16; Status DC Sodium Chloride 1,000 ml @ 100 mls/hr Q10H IV Last administered on 09/28/17at 22:46; Start 09/28/17 at 19:06; Stop 09/29/17 at 05:05; Status DC Methylprednisolone Sodium Succinate (SOLU-Medrol 125MG VIAL) 125 mg 1X ONCE IV Last administered on 09/28/17at 19:42; Start 09/28/17 at 19:15; Stop 09/28/17 at 19:16; Status DC Ceftriaxone Sodium (Rocephin Im) 1 gm 1X ONCE IM Last administered on at 19:42; Start 09/28/17 at 19:15; Stop 09/28/17 at 19:16; Status DC Azithromycin (Zithromax) 500 mg 1X ONCE PO Last administered on 09/28/17at 19: 43; Start 09/28/17 at 19:15; Stop 09/28/17 at 19:16; Status DC Furosemide (Lasix) 40 mg 1X ONCE IVP ; Start 09/28/17 at 20:45; Stop 09/28/17 at 20:46; Status DC Enoxaparin Sodium (Lovenox 60mg Syringe) 60 mg 1X ONCE SQ ; Start 09/28/17 at 20:45; Stop 09/28/17 at 20:46; Status DC Vancomycin HCl 1 gm/Sodium Chloride 250 ml @ 250 mls/hr 1X ONCE IV Last administered on 09/28/17at 21:08; Start 09/28/17 at 21:00; Stop 09/28/17 at 21:59 ; Status DC Ondansetron HCl (Zofran) 4 mg PRN Q4HRS PRN IV NAUSEA/VOMITING; Start 09/28/17 at 21:00; Stop 09/29/17 at 07:23; Status DC Morphine Sulfate (Morphine 2mg Syringe) 2 mg PRN Q2HR PRN IV PAIN; Start at 21:00; Stop 09/29/17 at 20:59; Status DC Albuterol/ Ipratropium (Duoneb) 3 ml RTQID NEB Last administered on 09/30/17at 21:04; Start 09/29/17 at 21:30; Stop 09/30/17 at 21:29; Status DC Enoxaparin Sodium (Lovenox 80mg Syringe) 70 mg Q24H SQ ; Start 09/29/17 at 21:00 ; Stop 09/29/17 at 21:00; Status DC Sodium Chloride 250 ml @ As Directed STK-MED ONCE .ROUTE ; Start 09/28/17 at 21 :00; Stop 09/28/17 at 21:01; Status DC Vancomycin HCl 1 gm STK-MED ONCE .ROUTE ; Start 09/28/17 at 21:00; Stop at 21:01; Status DC Albuterol/ Ipratropium (Duoneb) 3 ml STK-MED ONCE .ROUTE ; Start 09/28/17 at 21: 02; Stop 09/28/17 at 21:03; Status DC Sodium Polystyrene Sulfonate (Kayexalate) 30 gm TID PO Last administered on at 22:47; Start 09/28/17 at 21:45; Stop 09/29/17 at 12:43; Status DC Albuterol Sulfate (Ventolin) 2.5 mg PRN Q4HRS PRN NEB SHORTNESS OF BREATH; Start 09/29/17 at 07:15 Aspirin (Children'S Aspirin) 81 mg DAILY PO Last administered on 10/02/17at 07: 50; Start 09/29/17 at 09:00 Benzonatate (Tessalon Perle) 100 mg TID PO Last administered on 10/02/17at 07:49 ; Start 09/29/17 at 09:00 Ferrous Sulfate (Feosol) 325 mg BID PO Last administered on 10/02/17at 07:50; Start 09/29/17 at 09:00 Furosemide (Lasix) 40 mg DAILY PO ; Start 09/29/17 at 09:00; Stop 09/29/17 at 09 :00; Status DC Acetaminophen/ Hydrocodone Bitart (Lortab 5/325) 1 tab TID PO ; Start 09/29/17 at 09:00; Stop 09/29/17 at 09:00; Status DC Lisinopril (Prinivil) 5 mg DAILY PO ; Start 09/29/17 at 09:00; Stop 09/29/17 at 13:33; Status DC Metoprolol Succinate (Toprol Xl) 50 mg DAILY PO ; Start 09/29/17 at 09:00; Stop 09/29/17 at 12:48; Status DC Pantoprazole Sodium (Protonix) 40 mg BID PO Last administered on 09/30/17at 08: 04; Start 09/29/17 at 09:00; Stop 09/30/17 at 13:51; Status DC Ascorbic Acid (Vitamin C) 250 mg BID PO Last administered on 10/02/17at 07:49; Start 09/29/17 at 09:00 Cetirizine HCl (ZyrTEC) 10 mg DAILY PO ; Start 09/29/17 at 09:00; Stop 09/29/17 at 13:31; Status DC Pravastatin Sodium (Pravachol) 5 mg QHS PO Last administered on 10/01/17at 21:03 ; Start 09/29/17 at 21:00 Non-Formulary Medication 18 mcg DAILY IH ; Start 09/29/17 at 09:00; Stop at 09:00; Status DC Ceftriaxone Sodium 1 gm/ Sodium Chloride 50 ml @ 100 mls/hr Q24H IV ; Start at 07:30; Status UNV Azithromycin (Zithromax) 250 mg DAILY PO Last administered on 10/02/17at 07:50; Start 09/29/17 at 09:00; Stop 10/03/17 at 09:01 Ceftriaxone Sodium (Rocephin) 1 gm Q24H IVP Last administered on 10/02/17at 07: 52; Start 09/29/17 at 08:00 Albuterol/ Ipratropium (Duoneb) 3 ml STK-MED ONCE .ROUTE Last administered on at 10:02; Start 09/29/17 at 09:46; Stop 09/29/17 at 09:47; Status DC Sodium Chloride 1,000 ml @ 75 mls/hr [id number] IV Last administered on at 10:31; Start 09/29/17 at 10:30; Stop 09/29/17 at 13:53; Status DC Oxycodone HCl (Roxicodone) 5 mg PRN Q6HRS PRN PO PAIN Last administered on 09/29at 10:32; Start 09/29/17 at 10:30; Stop 09/29/17 at 12:42; Status DC Oxycodone HCl (Roxicodone) 15 mg PRN Q6HRS PRN PO PAIN Last administered on at 02:52; Start 09/29/17 at 12:45; Stop 09/30/17 at 14:28; Status DC Methylprednisolone Sodium Succinate (SOLU-Medrol 40MG VIAL) 40 mg Q8HRS IV Last administered on 09/30/17at 05:26; Start 09/29/17 at 14:00; Stop 09/30/17 at 13:28; Status DC Enoxaparin Sodium (Lovenox 60mg Syringe) 50 mg Q12HR SQ Last administered on at 21:03; Start 09/29/17 at 21:00 Enoxaparin Sodium (Lovenox 80mg Syringe) 50 mg Q12H SQ ; Start 09/29/17 at 21:00 ; Stop 09/29/17 at 21:00; Status DC Dextrose/Sodium Chloride 1,000 ml @ 75 mls/hr [id number] IV Last administered on 09/30/17at 12:56; Start 09/29/17 at 14:00; Stop 10/01/17 at 14:34; Status DC Albuterol/ Ipratropium (Duoneb) 3 ml STK-MED ONCE .ROUTE Last administered on at 15:12; Start 09/29/17 at 15:09; Stop 09/29/17 at 15:10; Status DC Insulin Aspart (NovoLOG) 0-5 UNITS QID SQ Last administered on 10/02/17at 07:53 ; Start 09/29/17 at 21:00 Dextrose 12.5 gm PRN Q15MIN PRN IV SEE COMMENTS; Start 09/29/17 at 19:00 Guaifenesin (Robitussin Dm) 10 ml PRN Q6HRS PRN PO COUGH Last administered on at 07:48; Start 09/30/17 at 01:30 Acetaminophen (Tylenol) 650 mg PRN Q6HRS PRN PO PAIN Last administered on at 14:47; Start 09/30/17 at 09:15 Lactobacillus Rhamnosus (Culturelle) 1 cap BID PO Last administered on at 07:49; Start 09/30/17 at 21:00 Methylprednisolone Sodium Succinate (SOLU-Medrol 40MG VIAL) 40 mg Q12H IV Last administered on 10/01/17at 05:49; Start 09/30/17 at 18:00; Stop 10/01/17 at 14:34 ; Status DC Pantoprazole Sodium (Protonix Packet) 40 mg DAILYAC PO Last administered on at 06:23; Start 10/01/17 at 07:30 Oxycodone HCl (Roxicodone) 15 mg Q6HRS PO Last administered on 10/02/17at 05:57 ; Start 09/30/17 at 14:30 Potassium Chloride (Klor-Con) 40 meq 1X ONCE PO Last administered on at 07:57; Start 10/01/17 at 07:45; Stop 10/01/17 at 07:46; Status DC Methylprednisolone Sodium Succinate (SOLU-Medrol 40MG VIAL) 40 mg DAILY IV Last administered on 10/02/17at 07:50; Start 10/02/17 at 09:00 Potassium Chloride (Klor-Con) 20 meq 1X ONCE PO Last administered on at 15:21; Start 10/01/17 at 14:45; Stop 10/01/17 at 14:46; Status DC Potassium Chloride (Klor-Con) 20 meq TID PO Last administered on 10/02/17at 07: 52; Start 10/01/17 at 21:00 Metoprolol Succinate (Toprol Xl) 50 mg DAILY PO Last administered on 10/02/17at 07:50; Start 10/02/17 at 09:00 Spironolactone (Aldactone) 12.5 mg DAILY PO Last administered on 10/02/17at 07: 49; Start 10/02/17 at 09:00 Lisinopril (Prinivil) 5 mg DAILY PO Last administered on 10/02/17at 07:49; Start 10/02/17 at 09:00 Metoprolol Tartrate (Lopressor) 50 mg 1X ONCE PO Last administered on at 21:02; Start 10/01/17 at 21:00; Stop 10/01/17 at 21:01; Status DC Active Scripts Active Ventolin Hfa Inhaler (Albuterol Sulfate) 18 Gm Hfa.aer.ad 1 Puff IH PRN Q4HRS PRN Albuterol Sulfate Neb Soln (Albuterol Sulfate) 2.5 Mg/3 Ml Vial.neb 1 Vial NEB PRN Q4HRS Benzonatate 100 Mg Capsule 1 Cap PO TID Reported Metoprolol Succinate ( Xl ) (Metoprolol Succinate) 50 Mg Tab.er.24h 1 Tab PO DAILY Spironolactone 25 Mg Tablet 0.5 Tab PO DAILY Eliquis (Apixaban) 5 Mg Tablet 5 Mg PO BID Carvedilol 12.5 Mg Tablet 1 Tab PO BID Amiodarone Hcl 200 Mg Tablet 1 Tab PO DAILY Oxycodone Hcl Immed.release (Oxycodone HCl) 15 Mg Tablet 1 Tab PO PRN Q6HRS PRN Spiriva (Tiotropium [place]) 18 Mcg Cap.w.dev 18 Mcg IH DAILY Proair Hfa Inhaler (Albuterol Sulfate) 8.5 Gm Hfa.aer.ad 1 Puff INH Q4HRS PRN Furosemide 40 Mg Tablet 40 Mg PO DAILY LAST DOSE GIVEN: DATE: TIME: NEXT DOSE DUE: DATE: TIME: Pantoprazole Sodium 40 Mg Tablet.dr 40 Mg PO BID LAST DOSE GIVEN: DATE: TIME: NEXT DOSE DUE: DATE: TIME: Ferrous Sulfate 325 Mg Tablet 325 Mg PO BID LAST DOSE GIVEN: DATE: TIME: NEXT DOSE DUE: DATE: TIME: Aspirin 81 Mg Tab.chew 81 Mg PO DAILY LAST DOSE GIVEN: DATE: TIME: NEXT DOSE DUE: DATE: TIME: Lisinopril 5 Mg Tablet 5 Mg PO DAILY LAST DOSE GIVEN: DATE: TIME: NEXT DOSE DUE: DATE: TIME: Xarelto (Rivaroxaban) 10 Mg Tablet 20 Mg PO AC DINNER LAST DOSE GIVEN: DATE: TIME: NEXT DOSE DUE: DATE: TIME: Pravastatin Sodium 10 Mg Tablet 5 Mg PO HS LAST DOSE GIVEN: DATE: TIME: NEXT DOSE DUE: DATE: TIME: Potassium Citrate 10 Meq Tablet.er 1 Tab PO DAILY LAST DOSE GIVEN: DATE: TIME: NEXT DOSE DUE: DATE: TIME: Vitals/I & O Vital Sign - Last 24 Hours 10/01/17 10/01/17 10/01/17 10/01/17 09:00 09:30 10:00 11:00 Temp 98.1 98.2 98.3 98.3 Pulse 95 90 94 94 Resp 18 18 B/P (MAP) 141/62 (88) 149/71 123/72 135/68 Pulse Ox 94 O2 Delivery Nasal Cannula O2 Flow Rate 2.0 10/01/17 10/01/17 10/01/17 10/01/17 12:00 13:00 13:00 13:42 Temp 98.4 98.4 98.4 Pulse 90 84 84 80 B/P (MAP) 128/80 149/73 130/42 128/80 (96) 10/01/17 10/01/17 10/01/17 10/01/17 14:30 14:58 15:29 16:00 Temp 98.4 98.4 98.5 98.4 Pulse 84 87 65 Resp B/P (MAP) 149/71 158/80 149/73 (98) 166/77 10/01/17 10/01/17 10/01/17 10/01/17 16:30 17:00 18:00 18:35 Temp 98.2 98.4 98.4 Pulse 100 84 89 80 Resp B/P (MAP) 163/75 (104) 163/78 170/67 163/75 (104) Pulse Ox 95 O2 Delivery Nasal Cannula O2 Flow Rate 1.5 10/01/17 10/01/17 10/01/17 10/01/17 18:54 19:00 19:14 20:00 Temp 97.9 Pulse 81 86 Resp 22 B/P (MAP) 170/64 (99) Pulse Ox 95 95 O2 Delivery Nasal Cannula Nasal Cannula Nasal Cannula O2 Flow Rate 1.5 1.5 2.0 10/01/17 10/01/17 10/01/17 10/01/17 20:00 20:30 20:30 21:02 Pulse 80 77 82 86 Resp B/P (MAP) 99/76 (84) 117/77 (90) 150/77 (101) 170/64 Pulse Ox 99 100 96 O2 Delivery Nasal Cannula Nasal Cannula Nasal Cannula O2 Flow Rate 2.0 1.2 1.5 10/01/17 10/01/17 10/02/17 10/02/17 21:30 23:30 00:32 01:30 Pulse 77 58 Resp 25 31 22 22 B/P (MAP) 163/83 (109) 149/70 (96) Pulse Ox 98 99 99 99 O2 Delivery Nasal Cannula Nasal Cannula Nasal Cannula O2 Flow Rate 1.5 1.5 2.0 2.0 10/02/17 10/02/17 10/02/17 10/02/17 03:00 03:35 05:57 06:13 Pulse 54 55 57 Resp 20 25 20 24 B/P (MAP) 154/71 (98) 154/71 (98) 161/82 (108) Pulse Ox 100 98 100 95 O2 Delivery Nasal Cannula Nasal Cannula Nasal Cannula Nasal Cannula O2 Flow Rate 1.5 1.5 2.0 1.5 10/02/17 10/02/17 10/02/17 10/02/17 06:59 07:49 07:50 08:00 Pulse 88 88 O2 Delivery Nasal Cannula Nasal Cannula O2 Flow Rate 2.0 Intake and Output 10/01/17 10/01/17 10/02/17 15:00 23:00 07:00 Intake Total 900 ml 120 ml 240 ml Output Total 300 ml 500 ml Balance 600 ml 120 ml -260 ml LARISA JASON INSTRUMENT SETTER Oct 02, 2017 08:54
[2017-10-02] MEDS ORDERED: ALBUTEROL SULFATE 2.5 MG/3 ML NEBU. NEB PRN (09:00)
--- NOTE | 2017-10-02 09:25 | RAD ---
[facility] History: Dyspnea Comparison is made to a study from 10/01/2017. There has been a previous median sternotomy. The heart size is normal. There are emphysematous changes in the lungs with scattered parenchymal scars. No acute infiltrate is seen. There is no evidence of pleural fluid or pneumothorax. Moderate degenerative changes are present at both shoulders. IMPRESSION: No significant change since yesterday's study.
--- NOTE | 2017-10-02 14:40 | CARD ---
MR#: [id number] Date of Study: 10/02/2017 Ordering Physician: KARELY MCKEON, Referring Physician: PURVI LEMONS, Tech: Nadia Moya [facility] APPROVED REPORT EXAM: Two-dimensional and M-mode echocardiogram with Doppler and color Doppler. Other Information Quality : Average Technically limited study due to COPD. INDICATION COPD Dyspnea 2D DIMENSIONS Left Atrium(2D)5.0 (1.6-4.0cm)IVSd1.0 (0.7-1.1cm) Aortic Root(2D)3.8 (2.0-3.7cm)LVDd5.5 (3.9-5.9cm) LVOT Diameter2.3 (1.8-2.4cm)IVSs1.1 (0.8-1.2cm) LVDs3.9 (2.5-4.0cm)SV79.1 ml Aortic Valve AoV Peak Juan.165.9cm/sAoV VTI32.7cm AO Peak GR.11.0mmHgLVOT Peak Juan.70.9cm/s AO Mean GR.5mmHgAVA (VMAX)1.73cm2 AI P 1/2 [id number] Pulmonary Valve PV Peak Unvhsojd75.2cm/sPV Peak Grad.4mmHg Tricuspid Valve TR P. [id number]/sRAP [id number] TR Peak Gr.[id number] LEFT VENTRICLE The left ventricle is normal size. There is normal left ventricular wall thickness. The systolic func tion is mildly impaired. The Ejection Fraction is 45%. The mid to distal septum and apex are akinetic . Otherwise, mild global hypokinesis. Tissue Doppler imaging reveals moderate left ventricular diasto lic dysfunction. No left ventricle thrombus noted on this study. RIGHT VENTRICLE The right ventricle is normal size. The right ventricular systolic function is normal. ATRIA The left atrium is moderately dilated. The right atrium is moderately dilated. The interatrial septum is intact with no evidence for an atrial septal defect or patent foramen ovale as noted on 2-D or Do ppler imaging. AORTIC VALVE The aortic valve is calcified and not well visualized. Doppler and Color Flow revealed moderate aort ic regurgitation. There is no significant aortic valvular stenosis. MITRAL VALVE The mitral valve is mildly calcified. There is no evidence of mitral valve prolapse. There is no mitr al valve stenosis. Doppler and Color-flow revealed mild mitral regurgitation. TRICUSPID VALVE The tricuspid valve is normal in structure and function. Doppler and Color Flow revealed trace tricus pid regurgitation. There is no tricuspid valve stenosis. PULMONIC VALVE Doppler and Color Flow revealed no pulmonic valvular regurgitation. There is no pulmonic valvular caitie nosis. GREAT VESSELS The aortic root is normal in size. The IVC is normal in size and collapses >50% with inspiration. PERICARDIAL EFFUSION There is no pleural effusion. There is no evidence of significant pericardial effusion. Critical Notification Critical Value: No <Conclusion> The systolic function is mildly impaired. The Ejection Fraction is 45%. The mid to distal septum and apex are akinetic. Otherwise, mild global hypokinesis. Doppler and Color Flow revealed moderate aortic regurgitation. Signed by : Karely Mckeon, Electronically Approved : 10/02/2017 14:40:23
[2017-10-02] MEDS ORDERED: FUROSEMIDE 20 MG/2 ML VIAL IVP ONE (15:00)
[2017-10-02] MEDS: IPRATRPIUM/ALBUTEROL 0.5/2.5MG 3 ML NEBU. NEB SCH ×2 (16:00→22:29)
[2017-10-02] MEDS: PRAVASTATIN 20 MG TABLET. PO SCH (20:12)
--- NOTE | 2017-10-03 03:53 | PN ---
DATE: 10/02/2017 SUBJECTIVE: The patient is resting slightly propped up in bed, complaining of shortness of breath and marked swelling of both upper extremities. PHYSICAL EXAMINATION: GENERAL: When I examined him, he was , not jaundiced or cyanosed. No thyromegaly or jugular vein distention, generalized anasarca. VITAL SIGNS: His heart rate was 63, blood pressure 142/65, temperature was 98.5, respiratory rate 21 and oxygen saturation was 100% on 3 liters of oxygen. HEAD, EYES, EARS, NOSE AND THROAT: Normocephalic, atraumatic. NECK: Supple. HEART: Showed normal first and second heart sounds. No gallop, rub or murmur. CHEST: Clear to auscultation. No crepitation or rhonchi. ABDOMEN: Distended, soft, nontender. No guarding or rigidity. No organomegaly. Hernial orifice intact. Bowel sounds normal. NEUROLOGIC: He was sleepy, but arousable. All cranial nerves intact. He moves upper extremities to much good extent than lower extremities. DERMATOLOGIC: Examination of the skin showed marked bilateral upper extremity swelling and multiple bruises. His intake over the last 24 hours was 3070, output was ____. LABORATORY DATA: The lab work this morning showed a white cell count of 10,200, hemoglobin 10, hematocrit 30, MCV 90 and platelet count of 146,000. His chemistry showed serum sodium of 145, potassium 4.2, chloride 107, bicarbonate 36, anion gap of 2, BUN 36, creatinine 1, estimated GFR was 74 mL per minute, glucose was 85, calcium was 8.5, magnesium 2.1. Total bilirubin, AST, ALT, alkaline phosphatase were normal. His B-type natriuretic peptide was 6681. Total protein was 5.2, albumin 2.3. ASSESSMENT: 1. Acute bronchitis. 2. Chronic obstructive pulmonary disease exacerbation. 3. Acute hypoxic hypercapnic respiratory failure. 4. Congestive heart failure. 5. Acute kidney injury, resolving. His creatinine came down from 2.3-1. 6. Acute blood loss anemia versus hemolytic anemia with multiple antibodies, status post 2 units of blood transfusion. His H and H have improved to 9.9 and 30.8. PLAN: Continue all of his medications, including his metoprolol, spironolactone, and pravastatin. I will discontinue his intravenous steroids, cut down his Lovenox to 40 mg once a day and repeat all his labs tomorrow. We will give him 20 mg of Lasix now and 20 mg tomorrow morning and hopefully discharge him home tomorrow. CHARLOTTE BELTRE MD DR: GIGI/bran JOB#: [id number] / [id number]
[2017-10-03] MEDS: oxyCODONE IR 5 MG TABLET PO SCH ×3 (05:35→17:30)
[2017-10-03 06:01] VITALS: BP 144/75
[2017-10-03] MEDS: IPRATRPIUM/ALBUTEROL 0.5/2.5MG 3 ML NEBU. NEB SCH ×3 (06:07→15:30)
[2017-10-03 06:57] LABS: CALCIUM 8.5 mg/dL (8.5-10.1); GFR 74.3
[2017-10-03 06:58] LABS: POTASSIUM 5.2 mmol/L (3.5-5.1)
[2017-10-03 07:10] LABS: HEMATOCRIT 31.7 % (39.0-53.0); HEMOGLOBIN 10.5 g/dL (13.0-17.5); RED BLOOD COUNT 3.53 x10^6/uL (4.30-5.70); RED CELL DISTRIBUTION WIDTH 18.6 % (11.5-14.5); WHITE BLOOD COUNT 9.5 x10^3/uL (4.0-11.0)
[2017-10-03] MEDS: POTASSIUM CHLORIDE 20 MEQ TABLET.ER. PO SCH ×2 (07:50→11:36)
[2017-10-03] MEDS: methylPREDNISolone SOD SUCC PF 40 MG/ML VIAL. IV SCH (08:27)
[2017-10-03] MEDS: ASCORBIC ACID 500 MG TABLET PO SCH (08:31)
[2017-10-03] MEDS: FERROUS SULFATE 325 MG TABLET. PO SCH (08:31)
[2017-10-03] MEDS: AZITHROMYCIN 250 MG TABLET. PO SCH (08:31)
[2017-10-03] MEDS: SPIRONOLACTONE 25 MG TABLET PO SCH (08:31)
[2017-10-03] MEDS: ASPIRIN 81 MG TAB.CHEW PO SCH (08:31)
[2017-10-03] MEDS: METOPROLOL SUCC 24HR ER 50 MG TAB.ER.24H. PO SCH (08:31)
[2017-10-03] MEDS: LISINOPRIL 5 MG TABLET. PO SCH (08:32)
[2017-10-03] MEDS: BENZONATATE 100 MG CAPSULE. PO SCH ×2 (08:32→12:50)
[2017-10-03] MEDS: LACTOBACILLUS RHAMNOSUS GG 1 CAPSULE. PO SCH (08:32)
[2017-10-03] MEDS: PANTOPRAZOLE 40 MG PACKET. PO SCH (08:34)
[2017-10-03] MEDS: cefTRIAXone IV Push 1 GM VIAL. IVP SCH (08:34)
[2017-10-03] MEDS: INSULIN ASPART 300 UNITS/3 ML INSULN.PEN SQ SCH ×3 (08:38→17:35)
[2017-10-03] MEDS ORDERED: FUROSEMIDE 20 MG/2 ML VIAL IVP SCH (09:00)
[2017-10-03] MEDS ORDERED: ENOXAPARIN 40 MG/0.4 ML DISP.SYRIN. SQ SCH (09:00)
[2017-10-03 10:44] VITALS: BP 133/63
--- NOTE | 2017-10-03 16:13 | RAD ---
CT pelvis without contrast 10/03/2017 Clinical indication: Evaluate for right hip fracture. Comparison: Right femur radiograph 12/16/2016. Technique: Multiple CT images of the pelvis were obtained without contrast according to standard protocol. PQRS Compliance Statement: One or more of the following individualized dose reduction techniques were utilized for this examination: 1. Automated exposure control 2. Adjustment of the mA and/or kV according to patient size 3. Use of iterative reconstruction technique Findings: There is diffuse bony demineralization. There is a total right hip arthroplasty which limits evaluation of bony detail due to artifact including evaluation of the acetabulum. There is a nondisplaced comminuted acute appearing fracture of the inferior right pubic ramus series 3/image 111. No symphysis pubis diastasis. The sacroiliac articulations are maintained. There is mild left hip osteoarthritis with osteophytic spurring. Multilevel lower lumbar spondylosis to moderate degree at L4-L5 and L5-S1. There is aneurysmal dilatation of the inferior abdominal aorta measuring 3.9 cm at the level the bifurcation. Bilateral common and external iliac stents with opacification not assessed due to lack of intravenous contrast. The visualized small and large bowel loops are normal in caliber. Layering cholelithiasis. There is asymmetric fatty atrophy of the right iliopsoas mass. Impression: 1. Nondisplaced mildly comminuted fracture of the inferior right pubic ramus. 2. Total right hip arthroplasty which significantly limits evaluation of the right hip, including for fracture and loosening, due to artifact. If further imaging evaluation is clinically indicated, dedicated right hip radiographs are recommended. 3. Diffuse osteopenia. 4. Abdominal aortic aneurysm.
--- NOTE | 2017-10-03 17:32 | RAD ---
History: Fall, right hip replacement. Comparison: CT pelvis October 03, 2017. Findings: AP and frog-leg views of the right hip. Nondisplaced right inferior pubic ramus fracture was better described on the comparison CT. Right hip hemiarthroplasty is seen. No convincing fracture seen adjacent to the arthroplasty. Impression: 1. Right hip hemiarthroplasty. No convincing periprosthetic fracture is identified. 2. Right inferior pubic ramus fracture was better seen and visualized on comparison CT. Electronically signed by: Chapincito Weinberg MD (10/03/2017 5:29 PM) [facility]
[2017-10-03] MEDS ORDERED: ACET325T9 PO (18:17)
[2017-10-03] MEDS ORDERED: ASCO500C9 PO (18:17)
[2017-10-03] MEDS ORDERED: IPRA3AMP NEB (18:25)
[2017-10-03] MEDS ORDERED: GUAI5SYR PO (18:25)
[2017-10-03] MEDS ORDERED: CEFT1VIA6 IVP (18:25)
[2017-10-03] MEDS ORDERED: ENOX40DI SQ (18:25)
[2017-10-03] MEDS ORDERED: LACT1CAP21 PO (18:25)
[2017-10-03] MEDS ORDERED: ALBU2.5V14 NEB (19:49)
[2017-10-03] MEDS ORDERED: ASCO250T3 PO (19:49)
--- NOTE | 2017-10-03 23:58 | DS ---
DATE OF DISCHARGE: 10/03/2017 HISTORY OF PRESENT ILLNESS: The patient is a 66-year-old male patient who was originally admitted with increasing shortness of breath. He apparently has fallen at home, but he has never told us about that and he was noted to be in acute hypoxic hypercapnic respiratory failure and was found initially also been to have acute kidney injury with a creatinine has risen from up to 2.3 mg/dL. He has acute blood loss anemia with hemoglobin that had dropped down to 6.3 and hematocrit 19.4, although his stool for occult blood were negative. There is no evidence of active hemolysis. He was given 2 units of packed RBCs and a hemoglobin and hematocrit has stabilized as he was given huge amount of fluid and 2 units of packed RBCs. He went into congestive heart failure, treated with IV Lasix and did well. We did a CT scan of the pelvis this afternoon, which showed that the patient has nondisplaced mildly comminuted fracture of the inferior right pubic ramus; however, his total right hip arthroplasty, which significantly limits evaluation of the right hip including for fracture or loosening due to artifact and therefore we did x-ray of the right hip, which showed that there is a right hip hemiarthroplasty and showed no convincing periprosthetic fracture identified. However, he did have right inferior pubic ramus fracture, which was seen visualized on the comparison CT scan given that he has severe pain and poor mobility. A decision was made to discharge him to swing bed to continue with all his current medication. PHYSICAL EXAMINATION: GENERAL: When I saw him this afternoon, he looked well and was clearly in no apparent respiratory distress, pale, somewhat cachectic, but no jaundice, cyanosis, or thyromegaly. No jugular venous distension, but mild generalized anasarca. VITAL SIGNS: His heart rate was 70, blood pressure was 133/63, temperature was 97, respiratory rate was 23, and oxygen saturation was 96% on 2 liters of oxygen by nasal cannula. HEAD, EYES, EARS, NOSE AND THROAT: Showed normocephalic, atraumatic. NECK: Supple. HEART: Showed normal first and second heart sounds with no gallop, rub or murmur. CHEST: Clear to auscultation. No crepitation or rhonchi. ABDOMEN: Distended, soft, nontender. No guarding or rigidity. No organomegaly. Hernial orifice intact. Bowel sounds normal. NEUROLOGIC: He was awake, alert, responding appropriately. All cranial nerves intact. He moves his upper extremities to a much greater extent than his lower extremities. He is mostly bedbound, chair bound. He is able to stand and transfer to a chair, but unable to walk. His intake over the last 24 hours was 1740 and output was 2300. LABORATORY DATA: As of this morning, his white cell count was 9500, hemoglobin 10.5, hematocrit 32, MCV 90 and platelet count of 130,000. His chemistry showed a serum sodium of 143, potassium 5.2, chloride 106, bicarbonate 34, anion gap of 3, BUN 37, creatinine 1, estimated GFR was 74, glucose 190, calcium was 8.5. His prothrombin time was 11.6, INR 1.1, aPTT 27. D-dimer was high at 1.34. Urinalysis is unremarkable and toxic screen was unremarkable. Serology showed that the influenza A and B were negative. DISCHARGE MEDICATIONS: The patient was discharged to swing bed to continue on Lovenox 40 mg subcutaneously once a day, furosemide 20 mg once a day, oxycodone 15 mg every 6 hours. He is on insulin sliding scale before meals, albuterol and Atrovent for DuoNeb 4 times a day, albuterol sulfate every 2 hours as needed, lisinopril 5 mg once a day, spironolactone 12.5 mg once a day, metoprolol succinate 50 mg once a day, potassium chloride 20 mEq 3 times a day, Protonix 40 mg daily, lactobacillus rhamnosus 1 capsule p.o. b.i.d., acetaminophen 650 mg every 4 hours, pravastatin 5 mg at bedtime, ascorbic acid 250 mg twice a day, ferrous sulfate 325 mg twice a day, benzonatate 100 mg 3 times a day, aspirin 81 mg once a day and ceftriaxone 1 gram IV once a day. FINAL DISCHARGE DIAGNOSES: 1. Acute bronchitis. 2. Chronic obstructive pulmonary disease exacerbation. 3. Acute hypoxic hypercapnic respiratory failure. 4. Congestive heart failure. 5. Acute kidney injury, resolving. His creatinine is down from 2.3-1 mg. 6. Acute blood loss anemia, status post 2 units of packed RBC transfusion. His hemoglobin has risen to 10 and 30. 7. Fall with right inferior pubic ramus fracture. 8. He has also hyperkalemia. My plan is to discontinue his potassium supplement as well as spironolactone and repeat his lab work tomorrow. CHARLOTTE BELTRE MD DR: GIGI/bran JOB#: [id number] / [id number]
== END 2017-10-03 19:00 | disposition swing bed (61) | DRG 871 ==
LOC: ER 18:35 → ICU 21:30
PROVIDERS: ADMIT Family Medicine; ATTEND Family Medicine
PROC: 30233N1 Transfusion of Nonautologous Red Blood Cells into Peripheral Vein, Percutaneous Approach (ICD-10-PCS; 2017-10-01)
PROC: 5A09357 Assistance with Respiratory Ventilation, Less than 24 Consecutive Hours, Continuous Positive Airway Pressure (ICD-10-PCS; principal; 2017-10-02)
DX: A41.9 Sepsis, unspecified organism (principal); J96.21 Acute and chronic respiratory failure with hypoxia; N17.9 Acute kidney failure, unspecified; E46 Unspecified protein-calorie malnutrition; S32.591A Other specified fracture of right pubis, initial encounter for closed fracture; E11.51 Type 2 diabetes mellitus with diabetic peripheral angiopathy without gangrene; D62 Acute posthemorrhagic anemia; E87.5 Hyperkalemia; I48.0 Paroxysmal atrial fibrillation; J96.22 Acute and chronic respiratory failure with hypercapnia; J44.1 Chronic obstructive pulmonary disease with (acute) exacerbation; J44.0 Chronic obstructive pulmonary disease with (acute) lower respiratory infection; Z68.1 Body mass index [BMI] 19.9 or less, adult; I11.0 Hypertensive heart disease with heart failure; I50.9 Heart failure, unspecified; J20.9 Acute bronchitis, unspecified; F12.90 Cannabis use, unspecified, uncomplicated; W18.39XA Other fall on same level, initial encounter; D72.829 Elevated white blood cell count, unspecified; Z96.641 Presence of right artificial hip joint; I25.5 Ischemic cardiomyopathy; Y93.89 Activity, other specified; Y92.098 Other place in other non-institutional residence as the place of occurrence of the external cause; Y99.8 Other external cause status; Z87.891 Personal history of nicotine dependence; Z95.1 Presence of aortocoronary bypass graft; I25.10 Atherosclerotic heart disease of native coronary artery without angina pectoris; Z88.8 Allergy status to other drugs, medicaments and biological substances; Z88.6 Allergy status to analgesic agent; Z88.1 Allergy status to other antibiotic agents; Z91.013 Allergy to seafood
CPT/HCPCS: 36415; 36600; 71045; 72192; 73502; 80048; 80053; 80076; 80307; 81001; 82274; 82553; 82803; 82947; 83540; 83550; 83605; 83690; 83735; 83880; 84443; 84484; 85014; 85018; 85025; 85027; 85379; 85610; 85730; 86850; 86870; 86900; 86901; 86922; 87040; 87086; 87641; 87804; 93005; 93306; 93970; 93971; 94640; 96365; 96372; 96375; J0456; J0696; J1650; J1815; J2920; J2930; J3370; J7050; J7613; J7620; P9016; 97530; 99285-25; G0479; J7030

== ENCOUNTER 2017-10-03 19:14 | Inpatient (IN) | payer MEDICARE ==
[~2017-10-03] VITALS: Ht 177.8 cm; Wt 59.5 kg
[~2017-10-03 19:14] MED LIST changes: +ACET325T9 PO; +AMIO200T2 PO; +APIX5TAB3 PO; +ASCO500C9 PO; +CARV12.52 PO; +CEFT1VIA6 IVP; +ENOX40DI SQ; +GUAI5SYR PO; +IPRA3AMP NEB; +LACT1CAP21 PO; +OXYC15TA PO; +OXYC5CAP PO; +SPIR25TA3 PO
[2017-10-03] MEDS ORDERED: ALBU2.5V14 NEB (19:49)
[2017-10-03] MEDS ORDERED: ASCO250T3 PO (19:49)
[2017-10-03] MEDS ORDERED: NON FORMULARY ITEM (Albuterol Sulfate (Albuterol Sulfate Conc Neb Soln) 2.5 MG) NEB PRN (20:00)
[2017-10-03] MEDS ORDERED: ACETAMINOPHEN 325 MG TABLET PO PRN (20:00)
[2017-10-03] MEDS ORDERED: DEXTROSE 50% 25 GM / 50ML DISP.SYRIN. IV PRN (20:00)
[2017-10-03 20:08] VITALS: BP 117/65
[2017-10-03] MEDS ORDERED: ALBUTEROL SULFATE 2.5 MG/3 ML NEBU. NEB PRN (20:30)
[2017-10-03] MEDS ORDERED: oxyCODONE IR 5 MG TABLET PO PRN (20:45)
[2017-10-03] MEDS: IPRATRPIUM/ALBUTEROL 0.5/2.5MG 3 ML NEBU. NEB SCH (20:58)
[2017-10-03] MEDS: LACTOBACILLUS RHAMNOSUS GG 1 CAPSULE. PO SCH (21:38)
[2017-10-03] MEDS: FERROUS SULFATE 325 MG TABLET. PO SCH (21:38)
[2017-10-03] MEDS: BENZONATATE 100 MG CAPSULE. PO SCH (21:38)
[2017-10-03] MEDS: ASCORBIC ACID 500 MG TABLET PO SCH (21:38)
[2017-10-03] MEDS: PRAVASTATIN 20 MG TABLET. PO SCH (21:39)
[2017-10-03] MEDS: oxyCODONE IR 5 MG TABLET PO SCH (21:40)
[2017-10-03] MEDS: INSULIN ASPART 300 UNITS/3 ML INSULN.PEN SQ SCH (21:45)
[2017-10-04] MEDS: IPRATRPIUM/ALBUTEROL 0.5/2.5MG 3 ML NEBU. NEB SCH ×4 (05:29→20:53)
[2017-10-04 05:42] VITALS: BP 158/80
[2017-10-04] MEDS: oxyCODONE IR 5 MG TABLET PO SCH ×3 (05:44→21:17)
[2017-10-04 06:49] LABS: BASO % 0 % (0-3); EOS % 0 % (0-3); HEMATOCRIT 31.2 % (39.0-53.0); HEMOGLOBIN 10.2 g/dL (13.0-17.5); LYMPH # 0.4 x10^3/uL (1.0-4.8); LYMPH % 4 % (24-48); MEAN CORPUSCULAR HEMOGLOBIN 29 pg (25-35); MEAN CORPUSCULAR HGB CONC 33 g/dL (31-37); MEAN CORPUSCULAR VOLUME 89 fL (79-100); MONO # 0.6 x10^3/uL (0.0-1.1); MONO % 6 % (0-9); NEUT # 8.5 x10^3uL (1.8-7.7); NEUT % 89 % (31-73); PLATELET COUNT 114 x10^3/uL (140-400); RED BLOOD COUNT 3.52 x10^6/uL (4.30-5.70); RED CELL DISTRIBUTION WIDTH 18.6 % (11.5-14.5); WHITE BLOOD COUNT 9.5 x10^3/uL (4.0-11.0)
[2017-10-04 06:58] LABS: ALBUMIN 2.4 g/dL (3.4-5.0); ALBUMIN/GLOBULIN RATIO 0.9 (1.0-1.7); CALCIUM 8.4 mg/dL (8.5-10.1); CREATININE 0.9 mg/dL (0.7-1.3); GFR 83.9; POTASSIUM 4.7 mmol/L (3.5-5.1); TOTAL BILIRUBIN 0.3 mg/dL (0.2-1.0); TOTAL PROTEIN 5.2 g/dL (6.4-8.2)
[2017-10-04] MEDS: INSULIN ASPART 300 UNITS/3 ML INSULN.PEN SQ SCH ×4 (07:30→21:24)
[2017-10-04] MEDS: cefTRIAXone IV Push 1 GM VIAL. IVP SCH (08:35)
[2017-10-04] MEDS: ENOXAPARIN 40 MG/0.4 ML DISP.SYRIN. SQ SCH (08:35)
[2017-10-04] MEDS: ASCORBIC ACID 500 MG TABLET PO SCH ×2 (08:36→21:17)
[2017-10-04] MEDS: ASPIRIN 81 MG TAB.CHEW PO SCH (08:36)
[2017-10-04] MEDS: LACTOBACILLUS RHAMNOSUS GG 1 CAPSULE. PO SCH ×2 (08:36→21:17)
[2017-10-04] MEDS: LISINOPRIL 5 MG TABLET. PO SCH (08:36)
[2017-10-04] MEDS: METOPROLOL SUCC 24HR ER 50 MG TAB.ER.24H. PO SCH (08:37)
[2017-10-04] MEDS: BENZONATATE 100 MG CAPSULE. PO SCH ×3 (08:37→21:18)
[2017-10-04] MEDS: FERROUS SULFATE 325 MG TABLET. PO SCH ×2 (08:37→21:18)
[2017-10-04] MEDS: PANTOPRAZOLE 40 MG TABLET. PO SCH (08:37)
[2017-10-04] MEDS: predniSONE 20 MG TABLET PO SCH (08:41)
[2017-10-04] MEDS ORDERED: SPIRONOLACTONE 25 MG TABLET PO SCH (09:00)
[2017-10-04 09:52] LABS: % LYMPHS 3 % (24-48); % MONOS 12 % (0-10); % SEGS 85 % (35-66); OVALOCYTES OCC; PLT ESTIMATE DECREASED (ADEQUATE)
[2017-10-04 09:53] LABS: POLYCHROMASIA SLIGHT
[2017-10-04 09:54] LABS: ANISOCYTOSIS SLIGHT; PLATELET CLUMP PRESENT
[2017-10-04 19:39] VITALS: BP 137/70
[2017-10-04] MEDS: guaiFENesin DM 200MG/20MG 10 ML SYRUP PO PRN (21:16)
[2017-10-04] MEDS: PRAVASTATIN 20 MG TABLET. PO SCH (21:18)
[2017-10-05] MEDS: IPRATRPIUM/ALBUTEROL 0.5/2.5MG 3 ML NEBU. NEB SCH ×4 (05:10→21:28)
[2017-10-05] MEDS: oxyCODONE IR 5 MG TABLET PO SCH ×3 (05:56→20:26)
[2017-10-05 06:04] VITALS: BP 135/73
[2017-10-05] MEDS: INSULIN ASPART 300 UNITS/3 ML INSULN.PEN SQ SCH ×4 (07:30→20:34)
[2017-10-05] MEDS: cefTRIAXone IV Push 1 GM VIAL. IVP SCH (07:48)
[2017-10-05] MEDS: ENOXAPARIN 40 MG/0.4 ML DISP.SYRIN. SQ SCH (07:48)
[2017-10-05] MEDS: FERROUS SULFATE 325 MG TABLET. PO SCH ×2 (07:49→20:25)
[2017-10-05] MEDS: METOPROLOL SUCC 24HR ER 50 MG TAB.ER.24H. PO SCH (07:49)
[2017-10-05] MEDS: LISINOPRIL 5 MG TABLET. PO SCH (07:49)
[2017-10-05] MEDS: ASPIRIN 81 MG TAB.CHEW PO SCH (07:50)
[2017-10-05] MEDS: PANTOPRAZOLE 40 MG TABLET. PO SCH (07:50)
[2017-10-05] MEDS: BENZONATATE 100 MG CAPSULE. PO SCH ×3 (07:50→20:25)
[2017-10-05] MEDS: ASCORBIC ACID 500 MG TABLET PO SCH ×2 (07:50→20:25)
[2017-10-05] MEDS: LACTOBACILLUS RHAMNOSUS GG 1 CAPSULE. PO SCH ×2 (07:50→20:25)
[2017-10-05] MEDS: predniSONE 20 MG TABLET PO SCH (07:51)
[2017-10-05] MEDS: PRAVASTATIN 20 MG TABLET. PO SCH (20:25)
[2017-10-06] MEDS: oxyCODONE IR 5 MG TABLET PO SCH ×3 (04:21→23:32)
[2017-10-06] MEDS: IPRATRPIUM/ALBUTEROL 0.5/2.5MG 3 ML NEBU. NEB SCH ×4 (06:56→22:19)
[2017-10-06] MEDS: INSULIN ASPART 300 UNITS/3 ML INSULN.PEN SQ SCH ×4 (07:58→20:11)
[2017-10-06] MEDS: BENZONATATE 100 MG CAPSULE. PO SCH ×3 (08:37→19:45)
[2017-10-06] MEDS: ENOXAPARIN 40 MG/0.4 ML DISP.SYRIN. SQ SCH (08:37)
[2017-10-06] MEDS: ASPIRIN 81 MG TAB.CHEW PO SCH (08:37)
[2017-10-06] MEDS: LACTOBACILLUS RHAMNOSUS GG 1 CAPSULE. PO SCH ×2 (08:38→19:45)
[2017-10-06] MEDS: LISINOPRIL 5 MG TABLET. PO SCH (08:38)
[2017-10-06] MEDS: PANTOPRAZOLE 40 MG TABLET. PO SCH (08:38)
[2017-10-06] MEDS: METOPROLOL SUCC 24HR ER 50 MG TAB.ER.24H. PO SCH (08:38)
[2017-10-06] MEDS: predniSONE 20 MG TABLET PO SCH (08:38)
[2017-10-06] MEDS: FERROUS SULFATE 325 MG TABLET. PO SCH ×2 (08:39→19:45)
[2017-10-06] MEDS: CEFPODOXIME PROXETIL 100 MG TABLET PO SCH ×2 (08:39→19:46)
[2017-10-06] MEDS: ASCORBIC ACID 500 MG TABLET PO SCH ×2 (08:39→19:46)
[2017-10-06] MEDS ORDERED: ACETAMINOPHEN 325 MG TABLET PO SCH ×3 (09:45→17:15)
[2017-10-06 10:42] VITALS: BP 136/77
[2017-10-06] MEDS: guaiFENesin DM 200MG/20MG 10 ML SYRUP PO PRN (11:38)
[2017-10-06] MEDS ORDERED: oxyCODONE IR 5 MG TABLET PO SCH ×3 (12:00→18:00)
[2017-10-06] MEDS: ACETAMINOPHEN 325 MG TABLET PO SCH (19:45)
[2017-10-06] MEDS: PRAVASTATIN 20 MG TABLET. PO SCH (19:46)
[2017-10-07] MEDS: ACETAMINOPHEN 325 MG TABLET PO SCH ×4 (01:51→20:02)
[2017-10-07] MEDS ORDERED: ACETAMINOPHEN 325 MG TABLET PO SCH (02:00)
[2017-10-07] MEDS: oxyCODONE IR 5 MG TABLET PO SCH ×4 (04:55→23:03)
[2017-10-07] MEDS: IPRATRPIUM/ALBUTEROL 0.5/2.5MG 3 ML NEBU. NEB SCH ×4 (05:33→19:46)
[2017-10-07] MEDS: INSULIN ASPART 300 UNITS/3 ML INSULN.PEN SQ SCH ×4 (07:30→20:10)
[2017-10-07] MEDS: PANTOPRAZOLE 40 MG TABLET. PO SCH (08:30)
[2017-10-07] MEDS: ASCORBIC ACID 500 MG TABLET PO SCH ×2 (08:31→20:01)
[2017-10-07] MEDS: LACTOBACILLUS RHAMNOSUS GG 1 CAPSULE. PO SCH ×2 (08:31→20:02)
[2017-10-07] MEDS: BENZONATATE 100 MG CAPSULE. PO SCH ×3 (08:31→20:01)
[2017-10-07] MEDS: FERROUS SULFATE 325 MG TABLET. PO SCH ×2 (08:31→20:01)
[2017-10-07] MEDS: predniSONE 10 MG TABLET PO SCH (08:31)
[2017-10-07] MEDS: METOPROLOL SUCC 24HR ER 50 MG TAB.ER.24H. PO SCH (08:32)
[2017-10-07] MEDS: ASPIRIN 81 MG TAB.CHEW PO SCH (08:32)
[2017-10-07] MEDS: LISINOPRIL 5 MG TABLET. PO SCH (08:33)
[2017-10-07] MEDS: CEFPODOXIME PROXETIL 100 MG TABLET PO SCH ×2 (08:39→20:01)
[2017-10-07] MEDS: ENOXAPARIN 40 MG/0.4 ML DISP.SYRIN. SQ SCH (08:40)
[2017-10-07] MEDS ORDERED: oxyCODONE IR 5 MG TABLET PO ONE (10:30)
[2017-10-07 11:33] VITALS: BP 100/64
[2017-10-07] MEDS: PRAVASTATIN 20 MG TABLET. PO SCH (20:02)
[2017-10-08] MEDS: ACETAMINOPHEN 325 MG TABLET PO SCH ×4 (02:00→20:00)
[2017-10-08] MEDS: oxyCODONE IR 5 MG TABLET PO SCH ×4 (05:01→19:59)
[2017-10-08] MEDS: IPRATRPIUM/ALBUTEROL 0.5/2.5MG 3 ML NEBU. NEB SCH ×4 (05:44→21:07)
[2017-10-08 06:00] VITALS: BP 140/81
[2017-10-08] MEDS: INSULIN ASPART 300 UNITS/3 ML INSULN.PEN SQ SCH ×4 (07:30→20:07)
[2017-10-08] MEDS: CEFPODOXIME PROXETIL 100 MG TABLET PO SCH ×2 (09:10→19:59)
[2017-10-08] MEDS: predniSONE 10 MG TABLET PO SCH (09:11)
[2017-10-08] MEDS: METOPROLOL SUCC 24HR ER 50 MG TAB.ER.24H. PO SCH (09:11)
[2017-10-08] MEDS: LISINOPRIL 5 MG TABLET. PO SCH (09:11)
[2017-10-08] MEDS: ASPIRIN 81 MG TAB.CHEW PO SCH (09:12)
[2017-10-08] MEDS: BENZONATATE 100 MG CAPSULE. PO SCH ×3 (09:12→20:00)
[2017-10-08] MEDS: PANTOPRAZOLE 40 MG TABLET. PO SCH (09:12)
[2017-10-08] MEDS: ASCORBIC ACID 500 MG TABLET PO SCH ×2 (09:12→20:00)
[2017-10-08] MEDS: LACTOBACILLUS RHAMNOSUS GG 1 CAPSULE. PO SCH ×2 (09:12→19:59)
[2017-10-08] MEDS: FERROUS SULFATE 325 MG TABLET. PO SCH ×2 (09:12→20:00)
[2017-10-08] MEDS: ENOXAPARIN 40 MG/0.4 ML DISP.SYRIN. SQ SCH (09:13)
[2017-10-08 10:08] VITALS: BP 124/75
[2017-10-08] MEDS ORDERED: tiZANidine 4 MG TABLET. PO ONE (13:30)
[2017-10-08 19:46] VITALS: BP 116/73
[2017-10-08] MEDS: PRAVASTATIN 20 MG TABLET. PO SCH (19:59)
[2017-10-09] MEDS: oxyCODONE IR 5 MG TABLET PO SCH ×6 (00:26→21:07)
[2017-10-09] MEDS: tiZANidine 4 MG TABLET. PO PRN (00:26)
[2017-10-09] MEDS: ACETAMINOPHEN 325 MG TABLET PO SCH ×4 (01:43→21:06)
[2017-10-09] MEDS: PANTOPRAZOLE 40 MG TABLET. PO SCH ×2 (05:34→07:41)
[2017-10-09] MEDS: IPRATRPIUM/ALBUTEROL 0.5/2.5MG 3 ML NEBU. NEB SCH ×4 (05:37→21:15)
[2017-10-09 05:59] VITALS: BP 120/60
[2017-10-09] MEDS: INSULIN ASPART 300 UNITS/3 ML INSULN.PEN SQ SCH ×5 (07:30→20:44)
[2017-10-09] MEDS: ASPIRIN 81 MG TAB.CHEW PO SCH (07:41)
[2017-10-09] MEDS: BENZONATATE 100 MG CAPSULE. PO SCH ×3 (07:41→21:06)
[2017-10-09] MEDS: LACTOBACILLUS RHAMNOSUS GG 1 CAPSULE. PO SCH ×2 (07:41→21:06)
[2017-10-09] MEDS: predniSONE 10 MG TABLET PO SCH (07:42)
[2017-10-09] MEDS: CEFPODOXIME PROXETIL 100 MG TABLET PO SCH ×2 (07:42→21:06)
[2017-10-09] MEDS: FERROUS SULFATE 325 MG TABLET. PO SCH ×2 (07:43→21:05)
[2017-10-09] MEDS: ASCORBIC ACID 500 MG TABLET PO SCH ×2 (07:43→21:06)
[2017-10-09] MEDS: METOPROLOL SUCC 24HR ER 50 MG TAB.ER.24H. PO SCH (07:43)
[2017-10-09] MEDS: LISINOPRIL 5 MG TABLET. PO SCH (07:44)
[2017-10-09] MEDS: ENOXAPARIN 40 MG/0.4 ML DISP.SYRIN. SQ SCH (07:44)
[2017-10-09 14:50] VITALS: BP 99/64
[2017-10-09 19:38] VITALS: BP_SYST 105; BP_SYST 123; BP_DIAS 57; BP_DIAS 71
[2017-10-09] MEDS: PRAVASTATIN 20 MG TABLET. PO SCH (21:05)
--- NOTE | 2017-10-10 00:52 | PN ---
DATE: CURRENT PROBLEMS: 1. Weakness. 2. Fall risk. 3. Right inferior pubic ramus fracture. 4. Chronic obstructive pulmonary disease. 5. Chronic hypoxic hypercapnic respiratory failure. 6. Pain management. 7. Severe left shoulder pain. HISTORY OF PRESENT ILLNESS: This is a 66-year-old male who was admitted to the swing bed status on 10/03/2017 for further strengthening because of his multiple medical conditions and severe weakness. He has been having problems with his pain in the left shoulder, which is not repairable, and I have switched him back to his Roxicodone every 4 hours, which was how he was taking it at home. He is a little bit more comfortable. He is seeing PT and OT and is trying to do more things for himself. OBJECTIVE: VITAL SIGNS: Blood pressure 120/60, pulse 77, pulse ox 94% on 2 liters. GENERAL: Color is jerri, purplish, left shoulder with significant impairment and limited range of motion. LUNGS: Clear. CARDIOVASCULAR: Regular rhythm and rate. EXTREMITIES: Without edema. Overall, condition is still very weak. ASSESSMENT: As above. PLAN: Continue swing bed status. AUGUSTUS DOVE DO DR: SAULO/bran JOB#: [id number] / [id number]
[2017-10-10] MEDS: oxyCODONE IR 5 MG TABLET PO SCH ×7 (01:22→23:47)
[2017-10-10] MEDS: ACETAMINOPHEN 325 MG TABLET PO SCH ×4 (02:00→20:13)
[2017-10-10] MEDS: IPRATRPIUM/ALBUTEROL 0.5/2.5MG 3 ML NEBU. NEB SCH ×4 (05:42→20:14)
[2017-10-10 05:50] VITALS: BP 112/49
[2017-10-10] MEDS: predniSONE 20 MG TABLET PO SCH (08:23)
[2017-10-10] MEDS: ASPIRIN 81 MG TAB.CHEW PO SCH (08:24)
[2017-10-10] MEDS: FERROUS SULFATE 325 MG TABLET. PO SCH ×2 (08:24→20:12)
[2017-10-10] MEDS: BENZONATATE 100 MG CAPSULE. PO SCH (08:24)
[2017-10-10] MEDS: ASCORBIC ACID 500 MG TABLET PO SCH ×2 (08:24→20:12)
[2017-10-10] MEDS: LACTOBACILLUS RHAMNOSUS GG 1 CAPSULE. PO SCH ×2 (08:24→20:12)
[2017-10-10] MEDS: CEFPODOXIME PROXETIL 100 MG TABLET PO SCH (08:24)
[2017-10-10] MEDS: ENOXAPARIN 40 MG/0.4 ML DISP.SYRIN. SQ SCH (08:25)
[2017-10-10] MEDS: METOPROLOL SUCC 24HR ER 50 MG TAB.ER.24H. PO SCH (08:34)
[2017-10-10] MEDS: LISINOPRIL 5 MG TABLET. PO SCH (08:35)
[2017-10-10] MEDS: INSULIN ASPART 300 UNITS/3 ML INSULN.PEN SQ SCH ×3 (11:30→20:13)
[2017-10-10 15:34] VITALS: BP 118/67
[2017-10-10] MEDS: PRAVASTATIN 20 MG TABLET. PO SCH (20:14)
[2017-10-11] MEDS: ACETAMINOPHEN 325 MG TABLET PO SCH ×4 (02:00→19:44)
[2017-10-11] MEDS: oxyCODONE IR 5 MG TABLET PO SCH ×5 (03:28→19:44)
[2017-10-11] MEDS: IPRATRPIUM/ALBUTEROL 0.5/2.5MG 3 ML NEBU. NEB SCH ×4 (05:37→21:36)
[2017-10-11] MEDS ORDERED: FUROSEMIDE 20 MG/2 ML VIAL IVP ONE (06:00)
[2017-10-11 06:03] VITALS: BP 134/70
[2017-10-11 07:29] LABS: BASO % 0 % (0-3); EOS # 0.1 x10^3/uL (0.0-0.7); EOS % 1 % (0-3); HEMATOCRIT 28.3 % (39.0-53.0); HEMOGLOBIN 9.4 g/dL (13.0-17.5); LYMPH # 0.5 x10^3/uL (1.0-4.8); LYMPH % 6 % (24-48); MEAN CORPUSCULAR HEMOGLOBIN 30 pg (25-35); MEAN CORPUSCULAR HGB CONC 33 g/dL (31-37); MEAN CORPUSCULAR VOLUME 90 fL (79-100); MONO # 0.5 x10^3/uL (0.0-1.1); MONO % 6 % (0-9); NEUT % 88 % (31-73); PLATELET COUNT 128 x10^3/uL (140-400); RED BLOOD COUNT 3.15 x10^6/uL (4.30-5.70); RED CELL DISTRIBUTION WIDTH 18.9 % (11.5-14.5); WHITE BLOOD COUNT 9.1 x10^3/uL (4.0-11.0)
[2017-10-11] MEDS: INSULIN ASPART 300 UNITS/3 ML INSULN.PEN SQ SCH ×4 (07:30→19:45)
[2017-10-11 07:48] LABS: ALBUMIN 2.6 g/dL (3.4-5.0); ALBUMIN/GLOBULIN RATIO 0.8 (1.0-1.7); CALCIUM 8.6 mg/dL (8.5-10.1); CREATININE 0.8 mg/dL (0.7-1.3); GFR 96.1; POTASSIUM 4.4 mmol/L (3.5-5.1); TOTAL BILIRUBIN 0.3 mg/dL (0.2-1.0); TOTAL PROTEIN 5.7 g/dL (6.4-8.2)
[2017-10-11] MEDS: LACTOBACILLUS RHAMNOSUS GG 1 CAPSULE. PO SCH ×2 (08:20→19:44)
[2017-10-11] MEDS: FERROUS SULFATE 325 MG TABLET. PO SCH ×2 (08:21→19:44)
[2017-10-11] MEDS: predniSONE 20 MG TABLET PO SCH (08:21)
[2017-10-11] MEDS: ENOXAPARIN 40 MG/0.4 ML DISP.SYRIN. SQ SCH (08:21)
[2017-10-11] MEDS: ASCORBIC ACID 500 MG TABLET PO SCH ×2 (08:22→19:45)
[2017-10-11] MEDS: METOPROLOL SUCC 24HR ER 50 MG TAB.ER.24H. PO SCH (08:22)
[2017-10-11] MEDS: PANTOPRAZOLE 40 MG TABLET. PO SCH (08:22)
[2017-10-11] MEDS: LISINOPRIL 5 MG TABLET. PO SCH (08:22)
[2017-10-11] MEDS: ASPIRIN 81 MG TAB.CHEW PO SCH (08:23)
[2017-10-11 08:41] LABS: % BANDS 3 % (0-9); % BASOS 0 % (0-3); % EOS 0 % (0-5); % LYMPHS 6 % (24-48); % MONOS 4 % (0-10); % SEGS 87 % (35-66)
[2017-10-11 08:42] LABS: PLT ESTIMATE DECREASED (ADEQUATE)
[2017-10-11 15:38] VITALS: BP 121/64
[2017-10-11] MEDS: tiZANidine 4 MG TABLET. PO PRN (19:44)
[2017-10-11] MEDS: PRAVASTATIN 20 MG TABLET. PO SCH (19:44)
[2017-10-12] MEDS: ACETAMINOPHEN 325 MG TABLET PO SCH ×4 (01:11→21:17)
[2017-10-12] MEDS: oxyCODONE IR 5 MG TABLET PO SCH ×6 (04:33→21:16)
[2017-10-12] MEDS: IPRATRPIUM/ALBUTEROL 0.5/2.5MG 3 ML NEBU. NEB SCH ×4 (05:48→20:37)
[2017-10-12 06:05] VITALS: BP 121/70
[2017-10-12] MEDS: INSULIN ASPART 300 UNITS/3 ML INSULN.PEN SQ SCH ×4 (07:30→21:00)
[2017-10-12] MEDS: PANTOPRAZOLE 40 MG TABLET. PO SCH (07:30)
[2017-10-12] MEDS: ASPIRIN 81 MG TAB.CHEW PO SCH (08:54)
[2017-10-12] MEDS: LACTOBACILLUS RHAMNOSUS GG 1 CAPSULE. PO SCH ×2 (08:54→21:17)
[2017-10-12] MEDS: ASCORBIC ACID 500 MG TABLET PO SCH ×2 (08:54→21:17)
[2017-10-12] MEDS: FERROUS SULFATE 325 MG TABLET. PO SCH ×2 (08:54→21:17)
[2017-10-12] MEDS: METOPROLOL SUCC 24HR ER 50 MG TAB.ER.24H. PO SCH (08:54)
[2017-10-12] MEDS: predniSONE 20 MG TABLET PO SCH (08:54)
[2017-10-12] MEDS: LISINOPRIL 5 MG TABLET. PO SCH (08:55)
[2017-10-12] MEDS: ENOXAPARIN 40 MG/0.4 ML DISP.SYRIN. SQ SCH (08:56)
--- NOTE | 2017-10-12 13:02 | RAD ---
Indication: Short of air. Technique: Upright portable chest radiograph was obtained and compared to a study from 10 days earlier. Findings: Interstitial prominence is coarsened and the lungs mildly hyperinflated. No superimposed airspace disease is apparent. Heart is not enlarged and there is no heart failure. Median sternotomy wires are noted. There are degenerative changes in both shoulders. Impression: No acute thoracic findings. Findings suggestive of emphysema.
[2017-10-12] MEDS ORDERED: POLYVINYL ALCOHOL 1.4% OPHTH SOLUTION 15ML BOTTLE. OU PRN (13:45)
[2017-10-12] MEDS: FUROSEMIDE 80 MG TABLET PO SCH (14:25)
[2017-10-12 15:53] VITALS: BP 110/70
[2017-10-12] MEDS: PRAVASTATIN 20 MG TABLET. PO SCH (21:17)
[2017-10-13] MEDS: oxyCODONE IR 5 MG TABLET PO SCH ×6 (00:19→20:06)
[2017-10-13] MEDS: ACETAMINOPHEN 325 MG TABLET PO SCH ×4 (02:00→20:12)
[2017-10-13 05:19] VITALS: BP 134/68
[2017-10-13] MEDS: IPRATRPIUM/ALBUTEROL 0.5/2.5MG 3 ML NEBU. NEB SCH ×4 (05:40→20:00)
[2017-10-13] MEDS: INSULIN ASPART 300 UNITS/3 ML INSULN.PEN SQ SCH ×4 (07:30→20:14)
[2017-10-13] MEDS: LACTOBACILLUS RHAMNOSUS GG 1 CAPSULE. PO SCH ×2 (08:19→20:06)
[2017-10-13] MEDS: ASPIRIN 81 MG TAB.CHEW PO SCH (08:20)
[2017-10-13] MEDS: METOPROLOL SUCC 24HR ER 50 MG TAB.ER.24H. PO SCH (08:20)
[2017-10-13] MEDS: predniSONE 10 MG TABLET PO SCH (08:20)
[2017-10-13] MEDS: PANTOPRAZOLE 40 MG TABLET. PO SCH (08:21)
[2017-10-13] MEDS: FUROSEMIDE 80 MG TABLET PO SCH (08:21)
[2017-10-13] MEDS: LISINOPRIL 5 MG TABLET. PO SCH (08:21)
[2017-10-13] MEDS: FERROUS SULFATE 325 MG TABLET. PO SCH ×2 (08:21→20:07)
[2017-10-13] MEDS: ASCORBIC ACID 500 MG TABLET PO SCH ×2 (08:21→20:07)
[2017-10-13] MEDS: ENOXAPARIN 40 MG/0.4 ML DISP.SYRIN. SQ SCH (08:22)
--- NOTE | 2017-10-13 11:44 | PN ---
DATE: 10/12/2017 CURRENT COMPLAINTS: 1. Dry eyes. 2. Increased edema. 3. Shortness of breath. SUBJECTIVE: This is a 66-year-old male who was admitted to the swing bed with profound weakness after sustaining a pubic rami fracture. He is undergoing PT and OT and nurses report that he does very little for himself and uses the call button frequently. We did have an extensive talk on that and did reiterate to him the purpose of the swing bed is for him to get stronger and be able to go home and do things more for himself. I gave him a pad and s pen so he would write down the things that he needs and have the nurses do it in one visit. He had been on Lasix and spironolactone and the Lasix was not resumed so we will do that today. OBJECTIVE: VITAL SIGNS: Blood pressure 121/70, temperature 97.5, pulse 71, respirations 16, pulse ox is 96% on 2 liters. GENERAL: The patient is very jerri complected, arms are purple from bruising, and he has a patino face from prednisone. HEENT: His tongue is moist. Eyes are dry in appearance. He is a little bit exophthalmic. LUNGS: Clear. CARDIOVASCULAR: Regular rhythm and rate. EXTREMITIES: With a 2-3+ edema. LABORATORY DATA: Chest x-ray is negative for congestive heart failure. Laboratory done yesterday, hemoglobin 9.4, hematocrit 28.3. Glucose is somewhat sporadic, but the fasting this morning was 72. ASSESSMENT: 1. Lower extremity edema. 2. Right inferior pubic ramus fracture, undergoing PT and OT. 3. Dry eyes. 4. Chronic obstructive pulmonary disease. 5. Chronic hypoxic hypercapnic respiratory failure. 6. Pain management. 7. Weakness. PLAN: Resume Lasix at 40 mg a day. Check labs in a couple of days. Ordered some eye drops for him and encouraged him strongly to try to do a little bit more for himself and to call the nurses less often if possible. AUGUSTUS DOVE DO DR: SAULO/bran JOB#: [id number] / [id number]
[2017-10-13 18:31] VITALS: BP 104/62
[2017-10-13] MEDS: PRAVASTATIN 20 MG TABLET. PO SCH (20:06)
[2017-10-13] MEDS: tiZANidine 4 MG TABLET. PO PRN (20:07)
--- NOTE | 2017-10-13 22:30 | DS ---
DATE OF DISCHARGE: 10/13/2017 HOSPITAL COURSE: The patient is a 66-year-old male patient who was originally admitted with COPD exacerbation and at that time was found also to have congestive heart failure and acute kidney injury, resolving together with acute blood loss anemia and he has also fallen with right inferior pubic ramus fracture and that he was discharged to swing bed where he continued to participate with physical and occupational therapy and a decision was made to discharge him home with home health to continue the process of rehabilitation there. PHYSICAL EXAMINATION: GENERAL: On examining him today, he looked well and was clearly in no apparent respiratory distress, pale, somewhat cachectic, but no jaundice, cyanosis, lymphadenopathy or thyromegaly. No jugular venous distension. No limb edema. VITAL SIGNS: His heart rate was 78, blood pressure 134/68, temperature was 98, respiratory rate was 20, and oxygen saturation was 96% on 2 liters of oxygen by nasal cannula. HEAD, EYES, EARS, NOSE AND THROAT: Showed normocephalic, atraumatic. NECK: Supple. HEART: Showed normal first and second heart sounds. No gallop, rub or murmur. CHEST: Shows central trachea, equally reduced expansion, reduced air entry, vesicular sounds. No crepitation or rhonchi. ABDOMEN: Slightly distended. Soft, nontender. No guarding or rigidity. No organomegaly. Hernial orifice intact. Bowel sounds normal. NEUROLOGIC: He is awake, alert, responding appropriately. All cranial nerves intact. He upper extremities to much good extent than his lower extremities as he had a right total hip arthroplasty together with inferior pubic rami fracture and continued to have difficulty walking. He is still able to transfer from bed to wheelchair and vice versa. LABORATORY DATA: Showed a white cell count of 9000, hemoglobin 9, hematocrit 28, MCV 90 and platelet count of 228,000. His chemistry showed that his serum sodium was 142, potassium 4.4, chloride 103, bicarbonate 37, anion gap of 2, BUN 33, creatinine 0.8, estimated GFR was 96 mL per minute, his glucose was 84, calcium was 8.6. Total bilirubin, AST, ALT, alkaline phosphatase were normal. Total protein was 5.7, albumin 2.6. DISCHARGE MEDICATIONS: He was discharged home to continue on following medications: Acetaminophen 650 mg every 4 hours as needed, albuterol sulfate 2 puffs every 4 hours, albuterol sulfate by nebulizer every 4 hours as needed, ascorbic acid 250 mg twice a day, aspirin 81 mg once a day, benzonatate 100 mg 3 times a day, Lovenox 40 mg subcutaneously daily, ferrous sulfate 325 mg twice a day, guaifenesin DM 10 mL every 6 hours, DuoNeb 4 times a day, lactobacillus rhamnosus 1 tablet twice a day, lisinopril 5 mg once a day, metoprolol succinate 50 mg daily, oxycodone 15 mg every 8 hours, Protonix 40 mg daily, pravastatin 5 mg at bedtime, spironolactone 12.5 mg once a day. FINAL DISCHARGE DIAGNOSES: 1. Acute bronchitis. 2. Chronic obstructive pulmonary disease exacerbation. 3. Acute hypoxic hypercapnic respiratory failure. 4. Congestive heart failure. 5. Acute kidney injury, resolved. His creatinine came down from 2.3 to 1. 6. Acute blood loss anemia, status post 2 units packed RBCs. His hemoglobin and hematocrit are 9 and 27. 7. Fall with right inferior pubic ramus fracture. The patient will be discharged home with home health. CHARLOTTE BELTRE MD DR: GIGI/bran JOB#: [id number] / [id number]
[2017-10-14] MEDS: oxyCODONE IR 5 MG TABLET PO SCH ×4 (01:53→12:39)
[2017-10-14] MEDS: ACETAMINOPHEN 325 MG TABLET PO SCH ×3 (02:00→14:27)
[2017-10-14] MEDS: IPRATRPIUM/ALBUTEROL 0.5/2.5MG 3 ML NEBU. NEB SCH ×2 (05:52→09:52)
[2017-10-14 06:22] VITALS: BP 116/76
[2017-10-14] MEDS: INSULIN ASPART 300 UNITS/3 ML INSULN.PEN SQ SCH ×2 (07:30→11:30)
[2017-10-14] MEDS: LACTOBACILLUS RHAMNOSUS GG 1 CAPSULE. PO SCH (08:19)
[2017-10-14] MEDS: METOPROLOL SUCC 24HR ER 50 MG TAB.ER.24H. PO SCH (08:19)
[2017-10-14 08:20] VITALS: BP 116/76
[2017-10-14] MEDS: FUROSEMIDE 80 MG TABLET PO SCH (08:20)
[2017-10-14] MEDS: LISINOPRIL 5 MG TABLET. PO SCH (08:20)
[2017-10-14] MEDS: ENOXAPARIN 40 MG/0.4 ML DISP.SYRIN. SQ SCH (08:21)
[2017-10-14] MEDS: predniSONE 10 MG TABLET PO SCH (08:21)
[2017-10-14] MEDS: ASPIRIN 81 MG TAB.CHEW PO SCH (08:21)
[2017-10-14] MEDS: FERROUS SULFATE 325 MG TABLET. PO SCH (08:21)
[2017-10-14] MEDS: PANTOPRAZOLE 40 MG TABLET. PO SCH (08:21)
[2017-10-14] MEDS: ASCORBIC ACID 500 MG TABLET PO SCH (08:21)
[2017-10-14] MEDS: guaiFENesin DM 200MG/20MG 10 ML SYRUP PO PRN (08:28)
== END 2017-10-14 14:55 | disposition home health service (06) | DRG 682 ==
LOC: 1 SOUTH 19:14
PROVIDERS: ADMIT Family Medicine; ATTEND Family Medicine
DX: N17.9 Acute kidney failure, unspecified (principal); J96.21 Acute and chronic respiratory failure with hypoxia; I50.9 Heart failure, unspecified; J96.22 Acute and chronic respiratory failure with hypercapnia; D62 Acute posthemorrhagic anemia; S32.591A Other specified fracture of right pubis, initial encounter for closed fracture; J44.0 Chronic obstructive pulmonary disease with (acute) lower respiratory infection; J44.1 Chronic obstructive pulmonary disease with (acute) exacerbation; H04.123 Dry eye syndrome of bilateral lacrimal glands; J20.9 Acute bronchitis, unspecified; Z88.8 Allergy status to other drugs, medicaments and biological substances; Z88.6 Allergy status to analgesic agent; Z91.013 Allergy to seafood; Z91.81 History of falling
CPT/HCPCS: 36415; 71045; 80053; 82947; 83880; 85007; 85025; 94640; 94760; J0696; J1650; J7512; J7620; 97110; 97530; 97535